=== PATIENT | female | born 1930 | race Caucasian/White ===

== ENCOUNTER → 2016-08-20 | Outpatient (CLI) | payer OTHER ==
[~2016-08-20] MED LIST: ACET-1311 PO; ALPHTAB4 PO; ATOR10TA82 PO; CEPH500C PO; CHOL200027 PO; CYAN100020 PO; FLUT0.15 NAE; HYDR200T5 PO; IBAN150T PO; LEVO1TAB34 PO; MAGN400T6 PO; METO-551 PO; MOMLX PO; MULT-412 PO; NF656 TOP; NUTR-1197 PO; NYSCR15 TOP; ONDA4TAB10 SL; ONDA4TAB46 PO; OXYC1TAB3 PO; PANC6000 PO; POLY335025 PO; POLY99.0 OPB; POTA-74 PO; PRED10TA PO; SIME80CH PO; TRAM-10 PO; VENL-273 PO; WOUN1PAD TD; ZNTT/150 PO; [UNRECOGNIZED DRUG - CODE]; [UNRECOGNIZED DRUG - CODE] PO; etodolac PO
== END | disposition home or self-care (01) ==
LOC: C.LABFOXAE 10:38
PROVIDERS: ATTEND Internal Medicine
DX: R19.7 Diarrhea, unspecified (principal)

== ENCOUNTER 2016-09-07 12:27 | Emergency (ER) | payer OTHER ==
[~2016-09-07] VITALS: Ht 160 cm; Wt 45.0 kg
[~2016-09-07 12:27] MED LIST changes: -ATOR10TA82 PO; +ATOR10TA88 PO; -CEPH500C PO; -FLUT0.15 NAE; -LEVO1TAB34 PO; -MOMLX PO; -NF656 TOP; -NUTR-1197 PO; -NYSCR15 TOP; -ONDA4TAB46 PO; -OXYC1TAB3 PO; -POLY99.0 OPB; -PRED10TA PO; -WOUN1PAD TD; -[UNRECOGNIZED DRUG - CODE]; -etodolac PO
[2016-09-07 12:32] VITALS: TEMP 36.8; Ht 160 cm; Wt 45.0 kg
--- NOTE | 2016-09-07 12:43 | EMERGENCY ROOM VISIT NOTE ---
History Report prepared by Koryibe: Meredith Ha Under the Supervision of: Dr. Mohamud Denny M.D. First contact with patient: 12:34 Chief Complaint: GI ASSESSMENT Stated Complaint: UNABLE TO VOID Nursing Triage Summary: Patient with colostomy, urostomy, presents with negative output in colostomy bag this AM. Patient reports abdominal pain yesterday. Upon arrival to ED, output noted in bag and patient reports relief of abdominal pressure. Slight distension noted. History of Present Illness The patient is an 86 year old female who presents to the Emergency Room with complaints of an inability to void. She was brought to the ED via EMS from [facility], where she resides. She has both a colostomy and urostomy bag and states earlier this morning, neither of them had any output from the night. She reports she experienced some abdominal pain yesterday, but it has resolved. Upon arrival to the ED, both her urostomy and colostomy bags provided output. The patient does not think she has ever experienced a bowel blockage before. She denies any other symptoms presently and states she feels better here in the ED. 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 A total of 10 systems reviewed and were otherwise negative. Past Medical & Surgical Medical Problems: (1) Carcinoma of colon (2) Closed fracture of sternum (3) Dehydration (4) Diarrhea (5) Essential hypertension (6) Gastroenteritis (7) Gastroesophageal reflux disease (8) History of Clostridium difficile (9) MRSA (methicillin resistant Staphylococcus aureus) (10) Pacemaker (11) Total colectomy Surgical Problems: (1) S/P colostomy (2) S/P ureterostomy Family History Heart disease Social History Smoking Status: Never Smoker Alcohol Use: none Drug Use: none Marital Status: Housing Status: assisted living Occupation Status: retired Current/Historical Medications Scheduled Acetaminophen (Tylenol), 650 MG PO TID [id number]-Mtcfzqiikzjdc (Beano), 2 TABS PO QID/UD Cholecalciferol (Vitamin D-3), 2,000 UNIT PO DAILY Cyanocobalamin (Vitamin B12), 1,000 MCG PO DAILY Hydroxychloroquine Sulfate (Plaquenil), 200 MG PO DAILY Ibandronate Sodium (Boniva), 150 MG PO MONTHLY Lactase (Lac-Dose), 3,000 UNIT PO TID Magnesium Oxide (Mag-Ox), 400 MG PO TID Metoprolol Tartrate (Lopressor), 50 MG PO Q12 Pancrelipase (Lipase-Protease- (Creon), 24,000 UNITS PO 5XD Polyethylene Glycol 3350 (Miralax), 8.5 GM PO DAILY Potassium Chloride (Potassium Chloride Er), 1 TAB PO TID Ranitidine (Zantac), 150 MG PO BID Simethicone (Gas-X), 80 MG PO TID Venlafaxine Hcl (Venlafaxine Hcl Er), 75 MG PO DAILY Scheduled PRN Tramadol (Ultram), 25 MG PO Q4H PRN for Pain Allergies Coded Allergies: Sulfamethoxazole w/Trimethoprim (Verified Allergy, Unknown, HIVES, 05/20/16 ) Lorazepam (Verified Adverse Reaction, Severe, DELIRIUM, 05/20/16) WORSENING of agitation and delirium. Morphine (Verified Adverse Reaction, Mild, CONFUSION, EXTREME AGITATION, 05/20/16) Haloperidol (Verified Adverse Reaction, Unknown, OVERSEDATION IN THE PAST , 05/20/16) Listed on [facility]. Physical Exam Vital Signs Date Time Temp Pulse Resp B/P Pulse Ox O2 Delivery O2 Flow Rate FiO2 09/07/16 14:29 74 16 132/88 99 09/07/16 12:32 36.8 74 16 131/60 94 Room Air Physical Exam GENERAL: Patient is well-appearing, smiling and in no acute distress. HEENT: No acute trauma, normocephalic atraumatic, mucous membranes moist, no nasal congestion, no scleral icterus. NECK: No stridor, no adenopathy, no meningismus, trachea is midline. LUNGS: No dyspnea. Clear to auscultation and equal bilaterally. No wheeze, no rhonchi. HEART: Regular rate and rhythm. No murmurs, rubs, gallops appreciated. ABDOMEN: Large amount of stool and gas in the ostomy bag. Abdomen is soft, nontender, bowel sounds positive, no masses appreciated, no peritonitis. BACK: No midline tenderness, no CVA tenderness EXTREMITIES: Normal motion all extremities, no cyanosis, no edema. NEUROLOGIC: Alert and oriented, no acute motor or sensory deficits, no focal weakness, cranial nerves grossly intact. SKIN: No rash, no jaundice, no diaphoresis. Medical Decision & Procedures ED Course 1236: The patient was evaluated in room A12. A complete history and physical exam was performed. 1350: I reevaluated the patient. She states she feels much better and would like to go home. I discussed the possibility that she has an early bowel blockage and she states she feels fine and will come back if she starts to get worse. After emptying her colostomy bag, it is now filled up again. I discussed her results and discharge instructions and she verbalized complete understanding and agreement. Medical Decision Differential: Appendicitis, Diverticulitis, PUD/Gastritis, Biliary Pathology, UTI, Pyelonephritis, Renal Colic, Bowel Obstruction, Aortic Pathology, Acute Coronary Syndrome, amongst other pathologies entertained. 86 yr old female arrives for evaluation of abdominal pain over last 12-24 hours. Notes it was constant with no bowel outs in to her ostomy overnight. En route on ambulance symptoms resolved and bag full of stool. She states she feels fine now. She declines any testing nor imaging. Abdomen is soft non- tender and bowel sounds are normal. Colostomy emptied twice and patient monitored for quite some time. She is requesting discharge and wants to go home. She is aware this may be start of some intraabdominal process and that if symptoms return to call 911 or RTED. Stable and in no distress throughout stay. I suspect this may have been stool blockage vs actual SBO that has resolved, regardless she is feeling much better and things have resolved thus seems reasonable to see how she does as an outpatient. I did make it clear that there may be something still going on though patient adamant not testing nor imaging at this time. Impression Primary Impression: Diffuse abdominal pain Scribe Attestation The scribe's documentation has been prepared under my direction and personally reviewed by me in its entirety. I confirm that the note above accurately reflects all work, treatment, procedures, and medical decision making performed by me. Departure Information Dispostion Home / Self-Care Referrals Hugo Martinez (PCP) Patient Instructions My [facility] Additional Instructions Return immediately or call 911 if worsening pain, fevers, vomiting, blood in urine or other concerns. Please follow up with your primary care provider.
[2016-09-07 14:29] VITALS: BP 132/88; PULSE 74; O2SAT 99
[2016-11-15] MEDS ORDERED: FLUT0.15 NAE (09:15)
[2016-11-15] MEDS ORDERED: [UNRECOGNIZED DRUG - CODE] (09:15)
[2016-11-15] MEDS ORDERED: MOMLX PO (09:15)
[2016-11-15] MEDS ORDERED: etodolac PO (09:15)
== END 2016-09-07 14:29 | disposition home or self-care (01) ==
LOC: EDBD 12:27 → C.EDA 12:29
DX: R10.9 Unspecified abdominal pain (principal); I10 Essential (primary) hypertension; K21.9 Gastro-esophageal reflux disease without esophagitis; Z95.0 Presence of cardiac pacemaker; Z90.49 Acquired absence of other specified parts of digestive tract

== ENCOUNTER → 2016-09-23 | Outpatient (CLI) | payer OTHER ==
[~2016-09-23] MED LIST changes: -ATOR10TA88 PO; +CEPH500C PO; +FLUT0.15 NAE; +LEVO1TAB34 PO; +MOMLX PO; -MULT-412 PO; +NF656 TOP; +NUTR-1197 PO; +NYSCR15 TOP; -ONDA4TAB10 SL; +ONDA4TAB46 PO; +OXYC1TAB3 PO; +POLY99.0 OPB; +PRED10TA PO; +WOUN1PAD TD; +[UNRECOGNIZED DRUG - CODE]; +etodolac PO
[2016-09-23 09:53] LABS: HEMATOCRIT 37.2 % (37-47); MEAN CELL VOLUME 92.3 fL (80-100); MEAN CORPUSCULAR HEMOGLOBIN 29.8 pg (25-34); MEAN CORPUSCULAR HGB CONC 32.3 g/dl (32-36); MEAN PLATELET VOLUME 9.6 fL (7.4-10.4); PLATELET COUNT 270 K/uL (130-400); RED BLOOD COUNT 4.03 M/uL (4.2-5.4); WHITE BLOOD COUNT 4.54 K/uL (4.8-10.8)
[2016-09-23 10:16] LABS: BLOOD UREA NITROGEN 29 mg/dl (7-18); BUN/CREATININE RATIO 24.4 (10-20); CALCIUM 9.3 mg/dl (8.5-10.1); CARBON DIOXIDE 21 mmol/L (21-32); CHLORIDE 110 mmol/L (98-107); CHOLESTEROL 116 mg/dl (0-200); GLUCOSE 92 mg/dl (70-99); SODIUM 142 mmol/L (136-145); TRIGLYCERIDES 120 mg/dl (0-150); VERY LOW DENSITY LIPOPROT CALC 24 mg/dl
[2016-09-23 10:21] LABS: CHOLESTEROL/HDL RATIO 2.2; FERRITIN 32.2 ng/ml (8.0-388.0); HDL CHOLESTEROL 53 mg/dl; LDL CHOLESTEROL CALCULATED 39 mg/dl; TOTAL IRON BINDING CAPACITY 333 mcg/dl (250-450)
== END ==
LOC: C.LABFOXAE 09:15
PROVIDERS: ATTEND Internal Medicine
DX: E87.6 Hypokalemia (principal); I82.449 Acute embolism and thrombosis of unspecified tibial vein

== ENCOUNTER → 2016-11-07 | Outpatient (CLI) | payer OTHER ==
[~2016-11-07] MED LIST changes: +[UNRECOGNIZED DRUG - CODE]; -[UNRECOGNIZED DRUG - CODE]
--- NOTE | 2016-11-07 11:52 | DIAGNOSTIC IMAGING REPORT ---
CT LUMBAR SPINE WITHOUT CT DOSE: 599.95 mGy.cm CLINICAL HISTORY: LOWER BACK PAIN, COMPRESSION AT L1 TECHNIQUE: Helical images were acquired in transverse plane. Reformatted sagittal and coronal images were reviewed. CONTRAST: No contrast was administered COMPARISON STUDY: Conventional radiographic study dated 08/28/2015, CT scan of the lumbar spine dated 05/18/2008, CT scan abdomen pelvis dated May 19, 2016 FINDINGS: The bones are osteopenic. There is an old severe L1 compression fracture with mild retropulsion. No acute fractures are visualized. There is a moderate levoscoliosis. L1-2 level: There is no evidence of significant disc bulge or focal herniation. There is no evidence of spinal or foraminal stenosis. L2-3 level: There is a mild circumferential disc bulge. There is mild spinal stenosis. There is no significant foraminal narrowing. L3-4 level: There is a mild circumferential disc bulge present. There is mild to moderate spinal stenosis. There is no significant foraminal narrowing. L4-5 level: There is a mild circumferential disc bulge. There is minor spinal canal narrowing. There is no significant foraminal stenosis. L5-S1 level: There is a grade 1 spondylolisthesis of L5 on S1. No focal herniations are visualized. There is no significant spinal stenosis. There is moderate left-sided foraminal narrowing. IMPRESSION: 1. Old severe L1 compression fracture with mild retropulsion 2. No acute fractures or traumatic subluxations are visualized 3. Osteopenia 4. Multilevel spondylitic changes with multilevel disc bulges. There is mild to moderate spinal stenosis the L3-4 level. 5. Left-sided foraminal narrowing at the L5-S1 level. Grade 1 spondylolisthesis of L5 on S1. Electronically signed by: Abrahan Woods M.D. 11/07/2016 11:51 AM Dictated Date/Time: 11/07/2016 11:46 AM
--- NOTE | 2016-11-12 05:58 | CODING QUERY NO DIAGNOSIS ---
TREATMENT RENDERED WITHOUT A DIAGNOSIS To promote full compliance with coding requirements relating to patient care, physician participation is requested in all cases of certified medical records coder uncertainty. Please assist us with providing a diagnosis/symptom for the test(s) below: A diagnosis/symptom was not documented on your Order. A valid diagnosis/symptom is required to bill all insurances. Please remember that we are unable to code a diagnosis of rule out, probable, possible, questionable, or suspected. Tests that require a diagnosis: * CT LUMBAR SPINE W/O IV CONTRAST DIAGNOSIS: Provider Signature: Date: Thank you Shannan [employer] Once completed, please kindly fax back to [phone] For questions please call [phone]
== END ==
LOC: C.CTS 10:58
PROVIDERS: ATTEND Internal Medicine
DX: M85.88 Other specified disorders of bone density and structure, other site (principal); M51.26 Other intervertebral disc displacement, lumbar region; M99.73 Connective tissue and disc stenosis of intervertebral foramina of lumbar region; M43.17 Spondylolisthesis, lumbosacral region

== ENCOUNTER → 2016-11-08 | Outpatient (CLI) | payer OTHER ==
--- NOTE | 2016-11-12 12:28 | CODING QUERY NO DIAGNOSIS ---
TREATMENT RENDERED WITHOUT A DIAGNOSIS To promote full compliance with coding requirements relating to patient care, physician participation is requested in all cases of certified professional coder uncertainty. Please assist us with providing a diagnosis/symptom for the test(s) below: A diagnosis/symptom was not documented on your Order. A valid diagnosis/symptom is required to bill all insurances. Please remember that we are unable to code a diagnosis of rule out, probable, possible, questionable, or suspected. Tests that require a diagnosis: DOS: 11/08/16 * ESR DIAGNOSIS: Provider Signature: Date: Thank you Cristina [facility] Information Management Once completed, please kindly fax back to [phone] For questions please call [phone]
== END ==
LOC: C.LABFOXAE 07:59
PROVIDERS: ATTEND Internal Medicine
DX: M54.5 Low back pain (principal)

== ENCOUNTER 2016-11-19 11:36 | Emergency (ER) | payer OTHER ==
[~2016-11-19] VITALS: Ht 157.5 cm; Wt 49.5 kg
[~2016-11-19 11:36] MED LIST changes: -CEPH500C PO; -LEVO1TAB34 PO; -NF656 TOP; -NUTR-1197 PO; -NYSCR15 TOP; -ONDA4TAB46 PO; -OXYC1TAB3 PO; -POLY99.0 OPB; -PRED10TA PO; -SIME80CH PO; -WOUN1PAD TD
[2016-11-19 11:52] VITALS: TEMP 36.5; Ht 157.5 cm; Wt 49.5 kg
[2016-11-19] MEDS ORDERED: SIME80CH PO (12:14)
[2016-11-19] MEDS ORDERED: ONDA4TAB46 PO (12:14)
[2016-11-19] MEDS ORDERED: POLY99.0 OPB (12:14)
[2016-11-19] MEDS ORDERED: NF656 TOP (12:14)
[2016-11-19 13:03] LABS: BASO % 0.5 %; BASO ABS # 0.03 K/uL (0-0.2); COMPLETE YES; EOS % 1.6 %; HEMATOCRIT 37.3 % (37-47); IG% 0.2 %; LYMPH % 9.3 %; LYMPH ABS # 0.57 K/uL (1.2-3.4); MEAN CELL VOLUME 93.3 fL (80-100); MEAN CORPUSCULAR HEMOGLOBIN 30.8 pg (25-34); MEAN PLATELET VOLUME 9.2 fL (7.4-10.4); MONO % 13.4 %; PLATELET COUNT 344 K/uL (130-400); WHITE BLOOD COUNT 6.11 K/uL (4.8-10.8)
[2016-11-19 13:20] LABS: BUN/CREATININE RATIO 21.2 (10-20); CALCIUM 9.2 mg/dl (8.5-10.1); CREATININE 0.93 mg/dl (0.60-1.20); POTASSIUM 4.2 mmol/L (3.5-5.1)
--- NOTE | 2016-11-19 13:41 | DIAGNOSTIC IMAGING REPORT ---
HEAD CT NONCONTRAST CT DOSE: 729.78 mGycm HISTORY: Altered mental status. TECHNIQUE: Multiaxial CT images of the head were performed without the use of intravenous contrast. Automated exposure control was utilized for this study. Comparison: Head CT 05/20/2016. Findings: The paranasal sinuses and mastoid air cells are clear. The calvarium and skull base are intact. There is no mass, hematoma, midline shift, acute infarct. White matter hypodensity is nonspecific but suggestive of microvascular ischemic change. The ventricles and sulci demonstrate mild age-related involutional changes. Impression: No significant change compared to the prior study. No acute intracranial abnormality. Electronically signed by: Shayan Wong M.D. 11/19/2016 1:40 PM Dictated Date/Time: 11/19/2016 1:37 PM
--- NOTE | 2016-11-19 13:56 | DIAGNOSTIC IMAGING REPORT ---
CT LUMBAR SPINE WITHOUT CT DOSE: 649.10 mGycm CLINICAL HISTORY: Low back pain. L1 compression fracture. TECHNIQUE: Helical images were acquired in transverse plane. Reformatted sagittal and coronal images were reviewed. CONTRAST: No contrast was administered COMPARISON STUDY: 11/07/2016 FINDINGS: There is an old severe L1 compression fracture with mild retropulsion. This remains unchanged the preceding study. No acute fractures are visualized. There is a grade 1 spondylolisthesis of L5 on S1, unchanged from the preceding study. There are multilevel degenerative changes present. There is mild to moderate spinal stenosis at the L3-4 level, unchanged the prior study. IMPRESSION: 1. No change from the prior November 04, 2012 study 2. Old severe L1 compression fracture with mild retropulsion 3. No acute fractures or traumatic subluxations identified 4. Osteopenia 5. Grade 1 spinal listhesis of L5 and S1 6. Mild to moderate spinal stenosis the L3-4 level. Electronically signed by: Abrahan Woods M.D. 11/19/2016 1:55 PM Dictated Date/Time: 11/19/2016 1:46 PM
[2016-11-19 14:53] LABS: URINE APPEARANCE CLOUDY (CLEAR); URINE BILIRUBIN NEG (NEG); URINE COLOR YELLOW; URINE NITRITE POS (NEG); URINE SPECIFIC GRAVITY 1.015 (1.000-1.030); UROBILINOGEN NEG (NEG)
[2016-11-19 15:03] LABS: MANUAL MICROSCOPIC REQUIRED? YES; REVIEW REQ? NO
[2016-11-19 15:24] LABS: URINE BACTERIA 3+ (NEG); URINE MUCUS PRESENT (NONE PRSENT); URINE WBC >30 /hpf (0-5)
[2016-11-19 15:25] LABS: URINE RBC 0-4 /hpf (0-4); ZZURINE CULT IF INDIC CATH YES
[2016-11-19] MEDS ORDERED: CEPHALEXIN MONOHYDRATE 250 MG CAP PO ONE (15:30)
[2016-11-19] MEDS ORDERED: OXYC1TAB3 PO (15:54)
[2016-11-19] MEDS ORDERED: CEPH500C PO (15:54)
[2016-11-19] MEDS ORDERED: TRAMADOL HCL 50 MG TAB PO STA (17:03)
[2016-11-19 17:05] VITALS: BP 168/112; PULSE 75; O2SAT 98
--- NOTE | 2016-11-19 18:22 | EMERGENCY ROOM VISIT NOTE ---
History Report prepared by Cristina: Jaden Silverio Under the Supervision of: Mary PritchettO. First contact with patient: 12:00 Chief Complaint: BACK PAIN Stated Complaint: Back pain, Compression Fracture History of Present Illness The patient is an 86 year old female who presents to the Emergency Room from [facility] with complaints of intermittent back pain that started after a fall a few weeks ago. Per the patient, she is not having any pain right now, except for a slight head pain. She currently cannot tell me the year. The patient denies any shortness of breath, diarrhea, chest pain, hip pain, or urinary symptoms. Per the nursing notes, the patient had a fall with a compression fracture on November 06. Per [facility] staff, the pain is not controlled. She has not been ambulating as much and has been more confused lately, according to the staff. History limited secondary to patient's dementia. Source of History: patient, nursing staff, other ([facility] staff) History Limited By: dementia Onset: A few weeks ago Position: back Timing: intermittent Associated Symptoms: + headache, No SOB, No chest pain, No diarrhea, No urinary symptoms Note: Associated symptoms: More confused lately. Review of Systems See HPI for pertinent positives & negatives. A total of 10 systems reviewed and were otherwise negative. Past Medical & Surgical Medical Problems: (1) Carcinoma of colon (2) Closed fracture of sternum (3) Dehydration (4) Diarrhea (5) Essential hypertension (6) Gastroenteritis (7) Gastroesophageal reflux disease (8) History of Clostridium difficile (9) MRSA (methicillin resistant Staphylococcus aureus) (10) Pacemaker (11) Total colectomy Surgical Problems: (1) S/P colostomy (2) S/P ureterostomy Family History Heart disease Social History Smoking Status: Never Smoker Alcohol Use: none Drug Use: none Marital Status: Housing Status: assisted living Occupation Status: retired Current/Historical Medications Scheduled Acetaminophen (Tylenol), 650 MG PO TID Bfiqe-O-Pgfbayirlhbla (Beano), 2 TABS PO QID/UD Calcitonin [place] (Miacalcin), 1 SPRAY NA DAILY Cephalexin Monohydrate (Keflex), 500 MG PO QID Cholecalciferol (Vitamin D-3), 2,000 UNIT PO DAILY Cyanocobalamin (Vitamin B12), 1,000 MCG PO DAILY Fluticasone Propionate (Nasal) (Flonase Allergy Relief), 2 SPRAYS ARI QAM Hydroxychloroquine Sulfate (Plaquenil), 200 MG PO DAILY Ibandronate Sodium (Boniva), 150 MG PO MONTHLY Lactase (Lac-Dose), 3,000 UNIT PO TID Lidocaine (Lidoderm Patch 5%), 2 PATCH TOP DAILY Magnesium Hydroxide (Milk of Magnesia), 30 ML PO UD Magnesium Oxide (Mag-Ox), 400 MG PO TID Metoprolol Tartrate (Lopressor), 50 MG PO Q12 Ondansetron Hcl (Zofran), 4 MG PO Q4H Pancrelipase (Lipase-Protease- (Creon), 24,000 UNITS PO 5XD Polyethylene Glycol 3350 (Miralax), 8.5 GM PO DAILY Potassium Chloride (Potassium Chloride Er), 1 TAB PO TID Ranitidine (Zantac), 150 MG PO BID Simethicone (Ra Gas Relief), 1 TAB PO TID Venlafaxine Hcl (Venlafaxine Hcl Er), 75 MG PO DAILY [etodolac], 200 MG PO BID Scheduled PRN Oxycodone Immediate Rel Tab (Roxicodone Ir), 5 MG PO Q6H PRN for Pain Polyvinyl Alcohol (Artificial Tears), 1 DROP OPB QID PRN for PRN Tramadol (Ultram), 50 MG PO Q4H PRN for Pain Allergies Coded Allergies: Sulfamethoxazole w/Trimethoprim (Verified Allergy, Unknown, HIVES, 11/19/16) Lorazepam (Verified Adverse Reaction, Severe, DELIRIUM, 11/19/16) WORSENING of agitation and delirium. Morphine (Verified Adverse Reaction, Mild, CONFUSION, EXTREME AGITATION, ) Haloperidol (Verified Adverse Reaction, Unknown, OVERSEDATION IN THE PAST , 11/19/16) Listed on [facility]. Uncoded Allergies: BENGAY (Adverse Reaction, Intermediate, RASH, 11/19/16) Physical Exam Vital Signs Date Time Temp Pulse Resp B/P Pulse Ox O2 Delivery O2 Flow Rate FiO2 11/19/16 17:05 75 18 168/112 98 11/19/16 15:54 74 18 186/103 98 Room Air 11/19/16 13:41 70 18 159/86 96 Room Air 11/19/16 11:52 36.5 70 20 140/78 96 Room Air Physical Exam GENERAL: laying in bed, well-kept, no acute distress, nontoxic EYE EXAM: normal conjunctiva OROPHARYNX: no exudate, no erythema, lips, buccal mucosa, and tongue normal and mucous membranes are moist NECK: supple, no nuchal rigidity, no adenopathy, non-tender LUNGS: Clear to auscultation. Normal chest wall mechanics HEART: no murmurs, S1 normal and S2 normal ABDOMEN: abdomen soft, non-tender, normo-active bowel sounds, no masses, no rebound or guarding. BACK: Lidoderm patch in lower lumbar with minimal tenderness to palpation SKIN: no rashes and no bruising UPPER EXTREMITIES: upper extremities are grossly normal. LOWER EXTREMITIES: flexion extension with hip, knee, ankle, and EHL 5/5, gross sensation intact NEURO EXAM: Alert and oriented to person and place but not year, cranial nerves II-XII grossly intact, normal speech, no gross weakness of arms, no gross weakness of legs. No drift. Finger to nose intact. Gross sensation intact. Medical Decision & Procedures ER Provider Diagnostic Interpretation: CT:Per my review, radiologist interpretation. HEAD CT NONCONTRAST CT DOSE: 729.78 mGycm HISTORY: Altered mental status. TECHNIQUE: Multiaxial CT images of the head were performed without the use of intravenous contrast. Automated exposure control was utilized for this study. Comparison: Head CT 05/20/2016. Findings: The paranasal sinuses and mastoid air cells are clear. The calvarium and skull base are intact. There is no mass, hematoma, midline shift, acute infarct. White matter hypodensity is nonspecific but suggestive of microvascular ischemic change. The ventricles and sulci demonstrate mild age-related involutional changes. Impression: No significant change compared to the prior study. No acute intracranial abnormality. Electronically signed by: Shayan Wong M.D. 11/19/2016 1:40 PM Dictated Date/Time: 11/19/2016 1:[address] LUMBAR SPINE WITHOUT CT DOSE: 649.10 mGycm CLINICAL HISTORY: Low back pain. L1 compression fracture. TECHNIQUE: Helical images were acquired in transverse plane. Reformatted sagittal and coronal images were reviewed. CONTRAST: No contrast was administered COMPARISON STUDY: 11/07/2016 FINDINGS: There is an old severe L1 compression fracture with mild retropulsion. This remains unchanged the preceding study. No acute fractures are visualized. There is a grade 1 spondylolisthesis of L5 on S1, unchanged from the preceding study. There are multilevel degenerative changes present. There is mild to moderate spinal stenosis at the L3-4 level, unchanged the prior study. IMPRESSION: 1. No change from the prior November 04, 2012 study 2. Old severe L1 compression fracture with mild retropulsion 3. No acute fractures or traumatic subluxations identified 4. Osteopenia 5. Grade 1 spinal listhesis of L5 and S1 6. Mild to moderate spinal stenosis the L3-4 level. Electronically signed by: Abrahan Woods M.D. 11/19/2016 1:55 PM Dictated Date/Time: 11/19/2016 1:46 PM Laboratory Results 11/19/16 12:45 Red Blood Count 4.00, Mean Corpuscular Volume 93.3, Mean Corpuscular Hemoglobin 30.8, Mean Corpuscular Hemoglobin Concent 33.0, Mean Platelet Volume 9.2, Neutrophils (%) (Auto) 75.0, Lymphocytes (%) (Auto) 9.3, Monocytes (%) (Auto) 13.4, Eosinophils (%) (Auto) 1.6, Basophils (%) (Auto) 0.5, Neutrophils # (Auto ) 4.58, Lymphocytes # (Auto) 0.57, Monocytes # (Auto) 0.82, Eosinophils # (Auto ) 0.10, Basophils # (Auto) 0.03 11/19/16 12:45 Test 11/19/16 12:45 11/19/16 14:00 White Blood Count 6.11 K/uL (4.8-10.8) Red Blood Count 4.00 M/uL (4.2-5.4) Hemoglobin 12.3 g/dL (12.0-16.0) Hematocrit 37.3 % (37-47) Mean Corpuscular Volume 93.3 fL (80-100) Mean Corpuscular Hemoglobin 30.8 pg (25-34) Mean Corpuscular Hemoglobin Concent 33.0 g/dl (32-36) Platelet Count 344 K/uL (130-400) Mean Platelet Volume 9.2 fL (7.4-10.4) Neutrophils (%) (Auto) 75.0 % Lymphocytes (%) (Auto) 9.3 % Monocytes (%) (Auto) 13.4 % Eosinophils (%) (Auto) 1.6 % Basophils (%) (Auto) 0.5 % Neutrophils # (Auto) 4.58 K/uL (1.4-6.5) Lymphocytes # (Auto) 0.57 K/uL (1.2-3.4) Monocytes # (Auto) 0.82 K/uL (0.11-0.59) Eosinophils # (Auto) 0.10 K/uL (0-0.5) Basophils # (Auto) 0.03 K/uL (0-0.2) RDW Standard Deviation 43.1 fL (36.4-46.3) RDW Coefficient of Variation 12.6 % (11.5-14.5) Immature Granulocyte % (Auto) 0.2 % Immature Granulocyte # (Auto) 0.01 K/uL (0.00-0.02) Anion Gap 9.0 mmol/L (3-11) Est Creatinine Clear Calc Drug Dose 33.9 ml/min Estimated GFR () 64.5 Estimated GFR (Non- 55.6 BUN/Creatinine Ratio 21.2 (10-20) Calcium Level 9.2 mg/dl (8.5-10.1) Total Bilirubin 0.7 mg/dl (0.2-1) Direct Bilirubin 0.2 mg/dl (0-0.2) Aspartate Amino Transf (AST/SGOT) 19 U/L (15-37) Alanine Aminotransferase (ALT/SGPT) 19 U/L (12-78) Alkaline Phosphatase 124 U/L (45-117) Total Protein 6.6 gm/dl (6.4-8.2) Albumin 3.1 gm/dl (3.4-5.0) Lipase 158 U/L (73-393) Urine Color YELLOW Urine Appearance CLOUDY (CLEAR) Urine pH 7.0 (4.5-7.5) Urine Specific [place] 1.015 (1.000-1.030) Urine Protein 1+ (NEG) Urine Glucose (UA) NEG (NEG) Urine Ketones NEG (NEG) Urine Occult Blood NEG (NEG) Urine Nitrite POS (NEG) Urine Bilirubin NEG (NEG) Urine Urobilinogen NEG (NEG) Urine Leukocyte Esterase MODERATE (NEG) Urine RBC 0-4 /hpf (0-4) Urine WBC >30 /hpf (0-5) Urine Epithelial Cells 5-10 /lpf (0-5) Urine Bacteria 3+ (NEG) Urine Hyaline Casts 1-5 /lpf (0-5) Urine Granular Casts 1-5 /lpf (0) Urine Mucus PRESENT (NONE PRSENT) Laboratory results per my review. Medications Administered Medications (Trade) Dose Ordered Sig/Gonzalo Route Start Time Stop Time Status Last Admin Dose Admin Cephalexin Monohydrate (Keflex Cap) 500 mg NOW ONCE PO 11/19/16 15:30 11/19/16 15:31 DC 11/19/16 15:54 500 MG Tramadol HCl (Ultram Tab) 50 mg NOW STAT PO 11/19/16 17:03 11/19/16 17:04 DC 11/19/16 17:03 50 MG ED Course ED COURSE: Vital signs were reviewed and showed normal vitals. The patients medical record was reviewed The above diagnostic studies were performed and reviewed. ED treatments and interventions as stated above. 1204: The patient was evaluated in room C1B. A complete history and physical examination was performed. 1218: I discussed the patient with staff at [facility] - the patient has been more confused over the past month and a half. She was sent here for pain control of the patient's lower back because they were unable to have the patient see pain management. 1234: I discussed the patient with Dr. Neal - knuckler - he does not think that the patient needs to be transferred. He thinks the patient's pain is controlled with Ultram. The patient's confusion is not any worse. 1344: I discussed the patient with Dr. Cotton of pain management - he suggests that if the patient needs, to increase her pain medications to oxycodone or hydrocodone. He will try to move the patient's appointment up. 1512: Upon reevaluation, the patient would like to go home and has no pain. I discussed my findings with the patient and she understands and agrees with the treatment plan. Based on the patients age, coexisting illnesses, exam and lab findings the decision to treat as an outpatient was made. The patient remained stable while under my care. The patient appeared well at the time of discharge. 1530: Ordered Keflex Cap 500 mg PO. 1540: I talked with the patient's son. I attempted to call the patient's daughter at her home and work number. 1547: I updated the charge nurse at [facility] regarding the patient's return. Medical Decision Differential diagnoses includes but is not limited to lumbar radiculopathy, muscle strain, facture, cauda equina, mass, and disc herniation. Patient is an 86 year old female [facility] per the request of her daughter for uncontrolled back pain. Patient has an old compression fracture and saw pain management and is scheduled on to have an injection. I spoke with the daughter and she was extremely upset and wanted her admitted for pain management to evaluate her. Following this I discussed with the nursing staff and they note that she has pain with movement. I discussed it with the attending physician at the [facility] and he notes that she is at her baseline and thinks that the confusion comes and goes with the Ultram. He also thinks that her pain is controlled with exception of when she moves. He is not sure why she got sent over to the hospital with the exception of because the daughter requested. I discussed the case with Dr. Emerson from pain management and he agreed with current treatment plan. CT of her lumbar spine shows no acute pathology. CBC along with BMP, bilirubin, LFTs and lipase was unremarkable. UA did have nitrates, leukocytes and white cells to suggest a UTI. She was given a dose of Keflex. Just prior to leaving she started to have some pain and she is given Ultram. Prior to discharge I did discuss case with her son who was in agreement with the plan. I tended to contact the daughter but was unsuccessful. From what she stated earlier she will be very unhappy and she is being discharged but I do not feel that she meets inpatient treatment at this time and that her pain is controlled as an outpatient. Discussed with Pt concerning signs and symptoms to watch out for. Pt was instructed to follow up with their PCP and discussed with the patient their option to return to the ED at anytime for persistent or worsening symptoms. The appropriate anticipatory guidance and out-patient management, including indications for return to the emergency department, were explained at length to the patient and understood. Consults Time Called: 1211 Consulting Physician: Staff at [facility] Returned Call: 1218 I discussed the patient with staff at [facility] - the patient has been more confused over the past month and a half. She was sent here for pain control of the patient's lower back because they were unable to have the patient see pain management. Additional Consults: Time Called: 1230 Consulted Physician: Dr. Neal - knuckler Returned Call: 1234 Additional Comments: I discussed the patient with Dr. Neal - knuckler - he does not think that the patient needs to be transferred. He thinks the patient's pain is controlled with Ultram. The patient's confusion is not any worse. Time Called: 1340 Consulted Physician: Dr. Cotton of pain management Returned Call: 1344 Additional Comments: I discussed the patient with Dr. Cotton of pain management - he suggests that if the patient needs, to increase her pain medications to oxycodone or hydrocodone. He will try to move the patient's appointment up. Impression Primary Impression: Acute back pain Additional Impression: UTI (urinary tract infection) Scribe Attestation The scribe's documentation has been prepared under my direction and personally reviewed by me in its entirety. I confirm that the note above accurately reflects all work, treatment, procedures, and medical decision making performed by me. Departure Information Dispostion Home / Self-Care Prescriptions Oxycodone Immediate Rel Tab (ROXICODONE IR) 5 Mg Tab 5 MG PO Q6H Y for Pain, #10 TAB Prov: Higinio Ojeda, DO 11/19/16 Cephalexin Monohydrate (Keflex) 500 Mg Cap 500 MG PO QID, #28 CAP Prov: Higinio Ojeda, DO 11/19/16 Referrals Hugo Martinez (PCP) Forms HOME CARE DOCUMENTATION FORM, IMPORTANT VISIT INFORMATION Patient Instructions Back Pain - [facility], ED UTI Cystitis Female, My [facility] Additional Instructions Please follow up with your primary care doctor with in the next 24 hours. Any worsening of your symptoms, please return to the ED immediately. This includes weakness or numbness in arms or legs, fevers greater than 100.4, persistent nausea vomiting, worsening pain, or any other concerning signs or symptoms from your standpoint. You were given medications during this visit that will inhibit your ability to drive, operate machinery and work. Please do NOT drive, operate machinery or work for the next 12hrs. You were also given a prescription for a narcotic/Oxy IR. While taking this medication you should also not drive, operate machinery and or work. You should also not take OxyIR in combination with Ultram/ tramadol. I discussed your findings with pain management and they will try to get you an earlier appointment. I also discussed her presentation with your attending physician at your facility. Problem Qualifiers Primary Impression: Acute back pain Back pain location: back pain in unspecified location Back pain laterality: unspecified Qualified Codes: M54.9 - Dorsalgia, unspecified Additional Impression: UTI (urinary tract infection) Urinary tract infection type: acute cystitis Hematuria presence: with hematuria Qualified Codes: N30.01 - Acute cystitis with hematuria
== END 2016-11-19 17:05 | disposition home or self-care (01) ==
LOC: EDBD 11:36 → C.EDC 11:39
DX: M54.5 Low back pain (principal); N39.0 Urinary tract infection, site not specified; F03.90 Unspecified dementia, unspecified severity, without behavioral disturbance, psychotic disturbance, mood disturbance, and anxiety; Z85.038 Personal history of other malignant neoplasm of large intestine; I10 Essential (primary) hypertension; K21.9 Gastro-esophageal reflux disease without esophagitis; Z95.0 Presence of cardiac pacemaker; Z90.49 Acquired absence of other specified parts of digestive tract; Z79.899 Other long term (current) drug therapy

== ENCOUNTER → 2016-11-28 | Outpatient (CLI) | payer OTHER ==
[~2016-11-28] MED LIST changes: +CEPH500C PO; +LEVO1TAB34 PO; +NF656 TOP; +NUTR-1197 PO; +NYSCR15 TOP; +ONDA4TAB46 PO; +OXYC1TAB3 PO; +POLY99.0 OPB; +PRED10TA PO; +SIME80CH PO; +WOUN1PAD TD
[2016-11-28 08:56] LABS: URINE APPEARANCE CLEAR (CLEAR); URINE BILIRUBIN NEG (NEG); URINE COLOR YELLOW; URINE NITRITE NEG (NEG); URINE SPECIFIC GRAVITY 1.009 (1.000-1.030); UROBILINOGEN NEG (NEG)
[2016-11-28 09:12] LABS: MANUAL MICROSCOPIC REQUIRED? NO; REVIEW REQ? NO
--- NOTE | 2016-12-02 13:06 | CODING QUERY MEDICAL NECESSITY ---
CQSUPPORTING DIAGNOSIS NEEDED A supporting diagnosis is required for the test/procedure performed on this patient in order for us to be reimbursed by the patient's insurance. Please provide a supporting diagnosis for the following test/procedure listed below next to the test name along with your signature. *If there is no additional diagnosis for this patient that would support the following test/procedure please document that below next to the test/procedure. Test(s)/Procedure(s) that require a supporting diagnosis: DOS 11/29/15 URINE CULTURE Provider Signature: Date: Thank you Kaylan Peters [employer] Once completed, please kindly fax back to [phone] For questions please call [phone]
== END ==
LOC: C.LABFOXAE 07:49
PROVIDERS: ATTEND Anesthesiology
DX: Z01.812 Encounter for preprocedural laboratory examination (principal)

== ENCOUNTER → 2016-12-02 | Outpatient (CLI) | payer OTHER ==
[2016-12-02 09:26] LABS: BASO % 0.2 %; BASO ABS # 0.02 K/uL (0-0.2); COMPLETE YES; EOS % 0.4 %; HEMATOCRIT 40.8 % (37-47); IG% 0.2 %; LYMPH ABS # 0.49 K/uL (1.2-3.4); MEAN CELL VOLUME 92.7 fL (80-100); MEAN CORPUSCULAR HEMOGLOBIN 31.1 pg (25-34); MEAN CORPUSCULAR HGB CONC 33.6 g/dl (32-36); MEAN PLATELET VOLUME 9.5 fL (7.4-10.4); MONO % 9.2 %; PLATELET COUNT 368 K/uL (130-400); WHITE BLOOD COUNT 12.13 K/uL (4.8-10.8)
== END | disposition home or self-care (01) ==
LOC: C.LABFOXAE 08:48
PROVIDERS: ATTEND Anesthesiology
DX: Z01.812 Encounter for preprocedural laboratory examination (principal)

== ENCOUNTER → 2016-12-03 | Outpatient (CLI) | payer OTHER ==
[2016-12-03 09:39] LABS: HEMATOCRIT 37.4 % (37-47); MEAN CELL VOLUME 94.4 fL (80-100); MEAN CORPUSCULAR HEMOGLOBIN 31.1 pg (25-34); MEAN CORPUSCULAR HGB CONC 32.9 g/dl (32-36); MEAN PLATELET VOLUME 9.4 fL (7.4-10.4); PLATELET COUNT 292 K/uL (130-400); RED BLOOD COUNT 3.96 M/uL (4.2-5.4); WHITE BLOOD COUNT 6.88 K/uL (4.8-10.8)
[2016-12-03 10:29] LABS: BLOOD UREA NITROGEN 28 mg/dl (7-18); BUN/CREATININE RATIO 28.5 (10-20); CALCIUM 9.7 mg/dl (8.5-10.1); CARBON DIOXIDE 26 mmol/L (21-32); CHLORIDE 104 mmol/L (98-107); CREATININE 0.99 mg/dl (0.60-1.20); GLUCOSE 85 mg/dl (70-99); POTASSIUM 4.2 mmol/L (3.5-5.1); SODIUM 137 mmol/L (136-145)
== END | disposition home or self-care (01) ==
LOC: C.LABFOXAE 09:13
PROVIDERS: ATTEND Internal Medicine
DX: R41.82 Altered mental status, unspecified (principal)

== ENCOUNTER → 2016-12-04 | Outpatient (CLI) | payer OTHER ==
[2016-12-04 08:06] LABS: HEMATOCRIT 35.2 % (37-47); MEAN CELL VOLUME 94.9 fL (80-100); MEAN CORPUSCULAR HEMOGLOBIN 30.7 pg (25-34); MEAN CORPUSCULAR HGB CONC 32.4 g/dl (32-36); MEAN PLATELET VOLUME 9.2 fL (7.4-10.4); PLATELET COUNT 312 K/uL (130-400); RED BLOOD COUNT 3.71 M/uL (4.2-5.4); WHITE BLOOD COUNT 8.54 K/uL (4.8-10.8)
--- NOTE | 2016-12-05 09:47 | CODING QUERY NO DIAGNOSIS ---
TREATMENT RENDERED WITHOUT A DIAGNOSIS To promote full compliance with coding requirements relating to patient care, physician participation is requested in all cases of medical record coder uncertainty. Please assist us with providing a diagnosis/symptom for the test(s) below: A diagnosis/symptom was not documented on your Order. A valid diagnosis/symptom is required to bill all insurances. Please remember that we are unable to code a diagnosis of rule out, probable, possible, questionable, or suspected. Tests that require a diagnosis: DOS 12/04 * CBC DIAGNOSIS: Provider Signature: Date: Thank you Gay Vasquez [employer] Information Management Once completed, please kindly fax back to [phone] For questions please call [phone]
== END | disposition home or self-care (01) ==
LOC: C.LABFOXAE 07:45
PROVIDERS: ATTEND Internal Medicine
DX: R41.0 Disorientation, unspecified (principal)

== ENCOUNTER 2016-12-08 22:34 | Inpatient (IN) | payer OTHER ==
[~2016-12-08] VITALS: Ht 157.5 cm; Wt 39.0 kg
[~2016-12-08 22:34] MED LIST changes: -LEVO1TAB34 PO; -NUTR-1197 PO; -NYSCR15 TOP; -PRED10TA PO; -WOUN1PAD TD
[2016-12-08] MEDS ORDERED: SODIUM CHLORIDE 0.9% 1000ML 1,000 ML IV STA (22:51)
[2016-12-08] MEDS: HYDROmorphone INJ 0.5 MG/0.5 ML SYR IV STA ×2 (22:51→23:09)
[2016-12-08] MEDS ORDERED: PRED10TA PO (23:17)
[2016-12-08 23:23] LABS: ALT/SGPT 36 U/L (12-78); AST/SGOT 22 U/L (15-37); BLOOD UREA NITROGEN 32 mg/dl (7-18); BUN/CREATININE RATIO 22.6 (10-20); CALCIUM 10.1 mg/dl (8.5-10.1); CARBON DIOXIDE 25 mmol/L (21-32); CHLORIDE 99 mmol/L (98-107); GLUCOSE 169 mg/dl (70-99); POTASSIUM 4.9 mmol/L (3.5-5.1); SODIUM 137 mmol/L (136-145)
[2016-12-08 23:28] LABS: ALKALINE PHOSPHATASE 113 U/L (45-117)
[2016-12-08 23:43] LABS: HEMATOCRIT 45.3 % (37-47); MEAN CELL VOLUME 94.4 fL (80-100); MEAN CORPUSCULAR HEMOGLOBIN 32.1 pg (25-34); MEAN PLATELET VOLUME 9.2 fL (7.4-10.4); PLATELET COUNT 491 K/uL (130-400); WHITE BLOOD COUNT 30.67 K/uL (4.8-10.8)
[2016-12-08] MEDS ORDERED: FENTANYL CITRATE INJ 50 MCG/1 ML 2 ML VIAL IV STA (23:51)
[2016-12-08] MEDS ORDERED: PIPERACILLIN/TAZOBACTAM 3.375 GM/100ML D5W IV STA (23:53)
[2016-12-09] VITALS (7 sets, daily range): BP systolic 115–160; BP diastolic 67–91; PULSE 67–106; TEMP 36.4–37; O2SAT 94–98; Ht 157.5 cm; Wt 39.0 kg
[2016-12-09] MEDS ORDERED: SODIUM CHLORIDE 0.9% 500ML 500 ML IV STA (00:22)
[2016-12-09 00:23] LABS: BASO % 0.1 %; BASO ABS # 0.02 K/uL (0-0.2); COMPLETE YES; IG% 0.4 %; LYMPH % 3.8 %; LYMPH ABS # 1.17 K/uL (1.2-3.4); MONO % 9.2 %; NEUT % 86.5 %; VACUOLIZATION OCCASIONAL
[2016-12-09 00:24] LABS: URINE APPEARANCE CLOUDY (CLEAR); URINE BILIRUBIN NEG (NEG); URINE COLOR ORANGE; URINE NITRITE NEG (NEG); URINE PH 7.5 (4.5-7.5); URINE SPECIFIC GRAVITY 1.017 (1.000-1.030); UROBILINOGEN NEG (NEG)
[2016-12-09 00:38] LABS: MANUAL MICROSCOPIC REQUIRED? YES; REVIEW REQ? NO; SULFASALICYLIC ACID POS (NEG)
--- NOTE | 2016-12-09 00:56 | History and Physical ---
History & Physical Date & Time of Service: Dec 09, 2016 at 00:46 Chief Complaint: Vomiting/Chest Pain Primary Care Physician: Jere Neal M.D. History of Present Illness Source: patient, family he patient is an 86 year old female who presents to the Emergency Room with complaints of nausea and vomiting that began at 1630, six hours prior to arrival. The patient lives in [facility] and called for emergency medical services due to nausea while taking a walk at 1630 today. Per EMS the patient did vomit shortly after onset, and vomited blood upon their arrival to the scene. She was also very diaphoretic. The patient has not had any output into her colostomy bag today and has had no urine production. She is currently complaining of nausea and abdominal pain. She denies headache, change in vision, fevers, shortness of breath, diarrhea, pain with urination, and melena. pt had CT scan done,- report- SBO on ventral hernia, pt had 2 times bowel obstruction surgery and colon cancer surgery at [facility], now pt denies abdominal pain, no nausea, no vomiting, colostomy bag with stool, Past Medical/Surgical History Medical Problems: (1) Carcinoma of colon Status: Resolved (2) Essential hypertension Status: Chronic (3) Gastroenteritis Status: Resolved (4) Gastroesophageal reflux disease Status: Chronic (5) History of Clostridium difficile Status: Resolved (6) MRSA (methicillin resistant Staphylococcus aureus) Status: Resolved (7) Pacemaker Status: Chronic (8) Total colectomy Status: Chronic Surgical Problems: (1) S/P colostomy Status: Resolved (2) S/P ureterostomy Status: Resolved Family History Heart disease Social History Smoking Status: Unknown if Ever Smoked Smokeless Tobacco Use: No Alcohol Use: none Drug Use: none Marital Status: Housing status: lives alone Occupational Status: retired Immunizations History of Influenza Vaccine: No Influenza Vaccine Date: Jun 03, 2010 History of Tetanus Vaccine?: Unknown History of Pneumococcal: No Pneumococcal Date: Aug 27, 2009 History of Hepatitis B Vaccine: Unknown Multi-Drug Resistant Organisms History of MDRO: No Type of MDRO: MRSA Allergies Coded Allergies: Sulfamethoxazole w/Trimethoprim (Verified Allergy, Unknown, HIVES, 12/08/16 ) Lorazepam (Verified Adverse Reaction, Severe, DELIRIUM, 12/08/16) WORSENING of agitation and delirium. Morphine (Verified Adverse Reaction, Mild, CONFUSION, EXTREME AGITATION, ) Haloperidol (Verified Adverse Reaction, Unknown, OVERSEDATION IN THE PAST , 12/08/16) Listed on [facility]. Uncoded Allergies: BENGAY (Adverse Reaction, Intermediate, RASH, 11/19/16) Home Medications Scheduled Acetaminophen (Tylenol), 650 MG PO TID [id number] (Beano), 2 TABS PO QID/UD Cholecalciferol (Vitamin D-3), 2,000 UNIT PO DAILY Cyanocobalamin (Vitamin B12), 1,000 MCG PO DAILY Fluticasone Propionate (Nasal) (Flonase Allergy Relief), 2 SPRAYS ARI QAM Hydroxychloroquine Sulfate (Plaquenil), 200 MG PO DAILY Ibandronate Sodium (Boniva), 150 MG PO MONTHLY Lactase (Lac-Dose), 3,000 UNIT PO TID Lidocaine (Lidoderm Patch 5%), 2 PATCH TOP DAILY Magnesium Hydroxide (Milk of Magnesia), 30 ML PO UD Magnesium Oxide (Mag-Ox), 400 MG PO TID Metoprolol Tartrate (Lopressor), 50 MG PO Q12 Pancrelipase (Lipase-Protease- (Creon), 24,000 UNITS PO 5XD Polyethylene Glycol 3350 (Miralax), 8.5 GM PO DAILY Potassium Chloride (Potassium Chloride Er), 1 TAB PO TID Prednisone Tab (Prednisone), 10 MG PO UD Ranitidine (Zantac), 150 MG PO BID Simethicone (Ra Gas Relief), 1 TAB PO TID Venlafaxine Hcl (Venlafaxine Hcl Er), 75 MG PO DAILY Scheduled PRN Ondansetron Hcl (Zofran), 4 MG PO Q4H PRN for Nausea or Vomiting Polyvinyl Alcohol (Artificial Tears), 1 DROP OPB QID PRN for PRN Tramadol (Ultram), 50 MG PO Q4H PRN for Pain Review of Systems Constitutional: No chills, No fatigue, No fever, No problem reported, No sweats , No weakness, No weight loss Eyes: No diplopia, No discharge, No eye pain, No problem reported, No redness, No worsening of vision ENT: No dental problems, No hearing loss, No nasal symptoms, No problem reported, No sore throat, No tinnitus, No trouble swallowing, No unusual epistaxis Respiratory: No cough, No dyspnea at rest, No dyspnea on exertion, No hemoptysis, No problem reported, No shortness of breath, No sputum, No wheezing Cardiovascular: + problem reported (pacemaker), No PND, No chest pain, No claudication, No edema, No orthopnea, No palpitations Abdomen: No GI bleeding, No constipation, No diarrhea, No nausea, No pain, No problem reported, No vomiting Neurologic: No balance problems, No memory loss, No numbness/tingling, No paralysis, No problem reported, No vertigo, No weakness Hematologic / Lymphatic: No abnormal bleeding/bruising, No clotting problems, No night sweats, No problem reported, No swollen lymph nodes Physical Exam Vital Signs Date Time Temp Pulse Resp B/P Pulse Ox O2 Delivery O2 Flow Rate FiO2 12/09/16 00:24 84 16 159/90 100 Nasal Cannula 2.0 12/08/16 23:11 98 16 178/109 91 Room Air 12/08/16 23:02 36.6 95 22 213/139 12/08/16 22:46 94 General Appearance: WD/WN Head: normocephalic Eyes: normal inspection ENT: normal ENT inspection Neck: supple, no JVD Respiratory/Chest: chest non-tender, lungs clear Cardiovascular: regular rate, rhythm, no edema, no JVD Abdomen/GI: normal bowel sounds, non tender, soft, no organomegaly (colostomy and urine-bag( fistula)) Diagnostics Laboratory Results Results Past 24 Hours Test 12/08/16 22:52 12/09/16 00:05 Range/Units White Blood Count 30.67 4.8-10.8 K/uL Red Blood Count 4.80 4.2-5.4 M/uL Hemoglobin 15.4 12.0-16.0 g/dL Hematocrit 45.3 37-47 % Mean Corpuscular Volume 94.4 80-100 fL Mean Corpuscular Hemoglobin 32.1 25-34 pg Mean Corpuscular Hemoglobin Concent 34.0 32-36 g/dl Platelet Count 491 130-400 K/uL Mean Platelet Volume 9.2 7.4-10.4 fL Neutrophils (%) (Auto) 86.5 % Lymphocytes (%) (Auto) 3.8 % Monocytes (%) (Auto) 9.2 % Eosinophils (%) (Auto) 0.0 % Basophils (%) (Auto) 0.1 % Neutrophils # (Auto) 26.53 1.4-6.5 K/uL Lymphocytes # (Auto) 1.17 1.2-3.4 K/uL Monocytes # (Auto) 2.82 0.11-0.59 K/uL Eosinophils # (Auto) 0.00 0-0.5 K/uL Basophils # (Auto) 0.02 0-0.2 K/uL RDW Standard Deviation 44.3 36.4-46.3 fL RDW Coefficient of Variation 12.7 11.5-14.5 % Immature Granulocyte % (Auto) 0.4 % Immature Granulocyte # (Auto) 0.13 0.00-0.02 K/uL Toxic Vacuolation OCCASIONAL Sodium Level 137 136-145 mmol/L Potassium Level 4.9 3.5-5.1 mmol/L Chloride Level 99 98-107 mmol/L Carbon Dioxide Level 25 21-32 mmol/L Anion Gap 13.0 3-11 mmol/L Blood Urea Nitrogen 32 7-18 mg/dl Creatinine 1.40 0.60-1.20 mg/dl Est Creatinine Clear Calc Drug Dose 17.8 ml/min Estimated GFR () 39.3 Estimated GFR (Non- 33.9 BUN/Creatinine Ratio 22.6 10-20 Random Glucose 169 70-99 mg/dl Calcium Level 10.1 8.5-10.1 mg/dl Total Bilirubin 0.7 0.2-1 mg/dl Direct Bilirubin 0.2 0-0.2 mg/dl Aspartate Amino Transf (AST/SGOT) 22 15-37 U/L Alanine Aminotransferase (ALT/SGPT) 36 12-78 U/L Alkaline Phosphatase 113 45-117 U/L Troponin I < 0.015 0-0.045 ng/ml Total Protein 7.9 6.4-8.2 gm/dl Albumin 3.8 3.4-5.0 gm/dl Lipase 803 73-393 U/L Urine Color ORANGE Urine Appearance CLOUDY CLEAR Urine pH 7.5 4.5-7.5 Urine Specific Franklin 1.017 1.000-1.030 Urine Protein 1+ NEG Urine Glucose (UA) NEG NEG Urine Ketones NEG NEG Urine Occult Blood NEG NEG Urine Nitrite NEG NEG Urine Bilirubin NEG NEG Urine Urobilinogen NEG NEG Urine Leukocyte Esterase SMALL NEG Urine WBC (Auto) 0-5 /hpf Urine RBC (Auto) 0-4 /hpf Urine Hyaline Casts (Auto) 0-5 /lpf Urine Epithelial Cells (Auto) 0-5 /lpf Urine Bacteria (Auto) NEG Diagnostic Radiology CT scan- possible SBO on ventral hernia, Impression Assessment and Plan IMP-m SBO, at ventral hernia base on pt had multiple surgery at [facility], I recommend to tranfer pt to higher level care to [facility]. for further DX and treatment, D/W ER attending,
[2016-12-09 00:57] LABS: URINE AMORPHOUS SEDIMENT PRESENT (NONE PRSENT); URINE BACTERIA 3+ (NEG); URINE RBC 0-4 /hpf (0-4); URINE WBC >30 /hpf (0-5)
[2016-12-09 00:58] LABS: ZZUR CULT IF INDIC CLEAN CATCH YES
--- NOTE | 2016-12-09 02:16 | EMERGENCY ROOM VISIT NOTE ---
History Report prepared by Cristina: Elgin Lara Under the Supervision of: Dr. Higinio Ojeda D.O. First contact with patient: 22:44 Chief Complaint: CARDIAC ASSESSMENT Stated Complaint: VOMITING/CHEST PAIN History of Present Illness The patient is an 86 year old female who presents to the Emergency Room with complaints of nausea and vomiting that began at 1630, six hours prior to arrival. The patient lives in [facility] and called for emergency medical services due to nausea while taking a walk at 1630 today. Per EMS the patient did vomit shortly after onset, and vomited blood upon their arrival to the scene. She was also very diaphoretic. The patient has not had any output into her colostomy bag today and has had no urine production. She is currently complaining of nausea and abdominal pain. She denies headache, change in vision, fevers, shortness of breath, or diarrhea. 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 A total of 10 systems reviewed and were otherwise negative. Past Medical & Surgical Medical Problems: (1) Carcinoma of colon (2) Closed fracture of sternum (3) Dehydration (4) Diarrhea (5) Essential hypertension (6) Gastroenteritis (7) Gastroesophageal reflux disease (8) History of Clostridium difficile (9) MRSA (methicillin resistant Staphylococcus aureus) (10) Pacemaker (11) Total colectomy Surgical Problems: (1) S/P colostomy (2) S/P ureterostomy Family History Heart disease Social History Smoking Status: Never Smoker Alcohol Use: none Drug Use: none Marital Status: Housing Status: assisted living Occupation Status: retired Current/Historical Medications Scheduled Acetaminophen (Tylenol), 650 MG PO TID Afwef-J-Qkvlbtreqcdbg (Beano), 2 TABS PO QID/UD Cholecalciferol (Vitamin D-3), 2,000 UNIT PO DAILY Cyanocobalamin (Vitamin B12), 1,000 MCG PO DAILY Fluticasone Propionate (Nasal) (Flonase Allergy Relief), 2 SPRAYS ARI QAM Hydroxychloroquine Sulfate (Plaquenil), 200 MG PO DAILY Ibandronate Sodium (Boniva), 150 MG PO MONTHLY Lactase (Lac-Dose), 3,000 UNIT PO TID Lidocaine (Lidoderm Patch 5%), 2 PATCH TOP DAILY Magnesium Hydroxide (Milk of Magnesia), 30 ML PO UD Magnesium Oxide (Mag-Ox), 400 MG PO TID Metoprolol Tartrate (Lopressor), 50 MG PO Q12 Pancrelipase (Lipase-Protease- (Creon), 24,000 UNITS PO 5XD Polyethylene Glycol 3350 (Miralax), 8.5 GM PO DAILY Potassium Chloride (Potassium Chloride Er), 1 TAB PO TID Prednisone Tab (Prednisone), 10 MG PO UD Ranitidine (Zantac), 150 MG PO BID Simethicone (Ra Gas Relief), 1 TAB PO TID Venlafaxine Hcl (Venlafaxine Hcl Er), 75 MG PO DAILY Scheduled PRN Ondansetron Hcl (Zofran), 4 MG PO Q4H PRN for Nausea or Vomiting Polyvinyl Alcohol (Artificial Tears), 1 DROP OPB QID PRN for PRN Tramadol (Ultram), 50 MG PO Q4H PRN for Pain Allergies Coded Allergies: Sulfamethoxazole w/Trimethoprim (Verified Allergy, Unknown, HIVES, 12/08/16 ) Lorazepam (Verified Adverse Reaction, Severe, DELIRIUM, 12/08/16) WORSENING of agitation and delirium. Morphine (Verified Adverse Reaction, Mild, CONFUSION, EXTREME AGITATION, ) Haloperidol (Verified Adverse Reaction, Unknown, OVERSEDATION IN THE PAST , 12/08/16) Listed on [facility]. Uncoded Allergies: BENGAY (Adverse Reaction, Intermediate, RASH, 11/19/16) Physical Exam Vital Signs Date Time Temp Pulse Resp B/P Pulse Ox O2 Delivery O2 Flow Rate FiO2 12/09/16 02:06 81 12/09/16 01:27 87 16 146/87 96 Nasal Cannula 2.0 12/09/16 00:24 84 16 159/90 100 Nasal Cannula 2.0 12/08/16 23:11 98 16 178/109 91 Room Air 12/08/16 23:02 36.6 95 22 213/139 12/08/16 22:46 94 Physical Exam GENERAL: Patient is sitting up in bed, moderate distress, ill appearing, holding abdomen. EYE EXAM: normal conjunctiva OROPHARYNX: no exudate, no erythema, lips, buccal mucosa, and tongue normal and mucous membranes are dry NECK: supple, no nuchal rigidity, no adenopathy, non-tender LUNGS: Clear to auscultation. Normal chest wall mechanics HEART: no murmurs, S1 normal and S2 normal ABDOMEN: Ostomy bag without output, no urine present in urostomy bag in LLQ of abdomen. diffuse tenderness, hypoactive bowel sounds. SKIN: no rashes and no bruising UPPER EXTREMITIES: upper extremities are grossly normal. LOWER EXTREMITIES: No pitting edema. NEURO EXAM: Alert, follows commands, no focal deficit appreciated. Medical Decision & Procedures ER Provider Diagnostic Interpretation: Radiology results as stated below per my review and the radiologist's interpretation: Chest X-RAY Portable AP Upright 1 View: Pacemaker located along right chest wall, normal cardiac silhouette, prominence of the left hilar region- likely secondary to rotation. . CT ABDOMEN & PELVIS: Comparison 05/20/2016 There are now dilated small bowel leading to and contained within the ventral hernia and transition into collapsed small bowel leading away concerning for small bowel obstruction. Right and left abdomen ostomy again noted. Pacemaker Solid Organs appear within limits. The gallbladder is distended without CT visible stones or surrounding inflammatory change Right lower quadrant bowel containing small lateral ventral hernia again seen for example axial 44 No evidence of free air or free fluid Corrales artifact from left femoral sliding dynamic compression screw Moderate to severe nonacute appearing L1 compression fracture Possible sacral insufficiency fracture Radiologist: Renan Crum M.D. Laboratory Results 12/08/16 22:52 Red Blood Count 4.80, Mean Corpuscular Volume 94.4, Mean Corpuscular Hemoglobin 32.1, Mean Corpuscular Hemoglobin Concent 34.0, Mean Platelet Volume 9.2, Neutrophils (%) (Auto) 86.5, Lymphocytes (%) (Auto) 3.8, Monocytes (%) (Auto) 9.2, Eosinophils (%) (Auto) 0.0, Basophils (%) (Auto) 0.1, Neutrophils # (Auto) 26.53, Lymphocytes # (Auto) 1.17, Monocytes # (Auto) 2.82, Eosinophils # (Auto) 0.00, Basophils # (Auto) 0.02 12/08/16 22:52 Test 12/08/16 22:52 12/09/16 00:05 12/09/16 02:09 White Blood Count 30.67 K/uL (4.8-10.8) Red Blood Count 4.80 M/uL (4.2-5.4) Hemoglobin 15.4 g/dL (12.0-16.0) Hematocrit 45.3 % (37-47) Mean Corpuscular Volume 94.4 fL (80-100) Mean Corpuscular Hemoglobin 32.1 pg (25-34) Mean Corpuscular Hemoglobin Concent 34.0 g/dl (32-36) Platelet Count 491 K/uL (130-400) Mean Platelet Volume 9.2 fL (7.4-10.4) Neutrophils (%) (Auto) 86.5 % Lymphocytes (%) (Auto) 3.8 % Monocytes (%) (Auto) 9.2 % Eosinophils (%) (Auto) 0.0 % Basophils (%) (Auto) 0.1 % Neutrophils # (Auto) 26.53 K/uL (1.4-6.5) Lymphocytes # (Auto) 1.17 K/uL (1.2-3.4) Monocytes # (Auto) 2.82 K/uL (0.11-0.59) Eosinophils # (Auto) 0.00 K/uL (0-0.5) Basophils # (Auto) 0.02 K/uL (0-0.2) RDW Standard Deviation 44.3 fL (36.4-46.3) RDW Coefficient of Variation 12.7 % (11.5-14.5) Immature Granulocyte % (Auto) 0.4 % Immature Granulocyte # (Auto) 0.13 K/uL (0.00-0.02) Toxic Vacuolation OCCASIONAL Anion Gap 13.0 mmol/L (3-11) Est Creatinine Clear Calc Drug Dose 17.8 ml/min Estimated GFR () 39.3 Estimated GFR (Non- 33.9 BUN/Creatinine Ratio 22.6 (10-20) Calcium Level 10.1 mg/dl (8.5-10.1) Total Bilirubin 0.7 mg/dl (0.2-1) Direct Bilirubin 0.2 mg/dl (0-0.2) Aspartate Amino Transf (AST/SGOT) 22 U/L (15-37) Alanine Aminotransferase (ALT/SGPT) 36 U/L (12-78) Alkaline Phosphatase 113 U/L (45-117) Troponin I < 0.015 ng/ml (0-0.045) Total Protein 7.9 gm/dl (6.4-8.2) Albumin 3.8 gm/dl (3.4-5.0) Lipase 803 U/L (73-393) Urine Color ORANGE Urine Appearance CLOUDY (CLEAR) Urine pH 7.5 (4.5-7.5) Urine Specific [place] 1.017 (1.000-1.030) Urine Protein 1+ (NEG) Urine Glucose (UA) NEG (NEG) Urine Ketones NEG (NEG) Urine Occult Blood NEG (NEG) Urine Nitrite NEG (NEG) Urine Bilirubin NEG (NEG) Urine Urobilinogen NEG (NEG) Urine Leukocyte Esterase SMALL (NEG) Urine WBC (Auto) /hpf (0-5) Urine RBC (Auto) /hpf (0-4) Urine Hyaline Casts (Auto) /lpf (0-5) Urine Epithelial Cells (Auto) /lpf (0-5) Urine Bacteria (Auto) (NEG) Urine RBC 0-4 /hpf (0-4) Urine WBC >30 /hpf (0-5) Urine Epithelial Cells 5-10 /lpf (0-5) Urine Triple Phosphate Crystals PRESENT (NONE PRSENT) Urine Amorphous Sediment PRESENT (NONE PRSENT) Urine Bacteria 3+ (NEG) Laboratory results per my review. Medications Administered Medications (Trade) Dose Ordered Sig/Gonzalo Route Start Time Stop Time Status Last Admin Dose Admin Sodium Chloride (Nss 1000ml) 1,000 ml @ 999 mls/hr Q1H1M STAT IV 12/08/16 22:51 12/08/16 23:51 DC 12/08/16 23:07 999 MLS/HR Fentanyl Citrate (Fentanyl Inj) 25 mcg NOW STAT IV 12/08/16 23:51 12/08/16 23:52 DC 12/08/16 23:57 25 MCG Piperacillin Sod/ Tazobactam Sod (Zosyn Iv) 3.375 gm NOW STAT IV 12/08/16 23:53 12/08/16 23:55 DC 12/09/16 00:19 3.375 GM ECG Indication: abdominal pain Rate (beats per minute): 96 Findings: no ectopy, other (LAD) ED Course ED COURSE: Vital signs were reviewed and showed hypertensive vitals The patients medical record was reviewed The above diagnostic studies were performed and reviewed. ED treatments and interventions as stated above. 2245: The patient was evaluated in room A11B. A complete history and physical examination was performed. 2251: Ordered Dilaudid 0.5 mg IV, Sodium Chloride 1000 mL @ 999 mL/hr IV. 2351: Ordered Fentanyl Citrate 25 mcg IV. 2353: Ordered Zosyn 3.375 gm IV. 0014: Dr. Jerry is observing the patient at this time. 0022: Ordered Sodium Chloride 500 mL @ 999 mL/hr IV. 0036: Dr. Jerry has seen the patient at this time, he would like the patient to be sent to [place] 0055: I discussed the case with the son and power of employment law attorney at this time for 15-20 minutes. They would prefer that the patient stayed here and not be transferred. 0106: Upon a subsequent discussion with Dr. Jerry, he has reduced the hernia and states that the patient can stay inpatient here. 0118: I discussed the case with Wyatt - Internal Medicine Resident at this time, he will evaluate the patient for further treatment. 0123: Upon reevaluation, the patient is resting in bed.I discussed my findings with the patient's power of employment law attorney and they understands and agrees with the treatment plan. Based on the patients age, coexisting illnesses, exam and lab findings the decision to treat as an inpatient was made. The patient remained stable while under my care. The patient will be evaluated for further management. Medical Decision Differential diagnoses includes but is not limited to gastritis, peptic ulcer disease, GERD, gallbladder disease, pancreatitis, small bowel obstruction, acute coronary syndrome, pericarditis, ischemic bowel, irritable bowel disease, irritable bowel syndrome, appendicitis, diverticulitis, malignancy, hernia, urinary tract infection, torsion, perforation, trauma, infectious. Patient is an 86 her old female who presents the ER for diffuse abdominal pain associated with nausea and vomiting. She has had no output in her ostomy today. She does have previous obstructions. Labs show a leukocytosis of 30, 000 along with an unremarkable BMP, LFTs, bilirubin and troponin. EKG was unchanged. Lipase was elevated at 800. UA had greater than 30 white cells and small amount of esterase along with +3 bacteria. I question whether this is colonization versus UTI. She was given a dose of Zosyn with her significant WBC and UA. CT noncontrast shows a small bowel obstruction likely secondary to a hernia. She was evaluated by general surgery immediately following the CT report. He notes that the hernia is reducible and does not believe that this is causing her leukocytosis. He updated family and recommended transfer to [place] as she has had her previous surgeries there. He does not believe that she needs surgery at this time as he believes the obstruction is now relieved. I updated family regards to transfer they requested stay at [facility]. I then rediscussed the case with Dr. Jerry who agreed that this was reasonable if patient was admitted to internal medicine. I did discuss the case with [place] general surgery and attempted contact her [place] colorectal surgeon but was unsuccessful since he is not on-call. I updated family at bedside. She was given a dose of fentanyl. She was given a bolus normal saline. She has rested comfortably and was admitted to internal medicine. No NG was placed as she has had no vomiting while in the ER. Consults Time Called: [phone] Consulting Physician: Wyatt - Internal Medicine Resident Returned Call: 011 I discussed the case with [facility] Internal Medicine Resident at this time, he will evaluate the patient for further treatment. Additional Consults: Time Called: 35 Consulted Physician: Dr. Jerry - General Surgery Returned Call: 35 Additional Comments: Dr. Jerry has seen the patient at this time, he would like the patient to be sent to [place] Impression Primary Impression: SBO (small bowel obstruction) Additional Impressions: Leukocytosis UTI (urinary tract infection) Scribe Attestation The scribe's documentation has been prepared under my direction and personally reviewed by me in its entirety. I confirm that the note above accurately reflects all work, treatment, procedures, and medical decision making performed by me. Departure Information Dispostion Being Evaluated By Hospitalist Hugo George (PCP) Patient Instructions My [facility] Health Problem Qualifiers Additional Impressions: Leukocytosis Leukocytosis type: unspecified Qualified Codes: D72.829 - Elevated white blood cell count, unspecified UTI (urinary tract infection) Urinary tract infection type: acute cystitis Hematuria presence: with hematuria Qualified Codes: N30.01 - Acute cystitis with hematuria
[2016-12-09] MEDS ORDERED: HYDROmorphone INJ 0.5 MG/0.5 ML SYR IV PRN (02:30)
[2016-12-09] MEDS ORDERED: ALUMINUM/MAGNESIUM/SIMETH (MAALOX MAX) 30 ML UDC PO PRN (02:30)
[2016-12-09] MEDS ORDERED: ONDANSETRON INJ 2 MG/ML 2 ML VIAL IV PRN (02:30)
[2016-12-09] MEDS ORDERED: MAGNESIUM HYDROXIDE SUSP 30 ML UDC PO PRN (02:30)
[2016-12-09] MEDS ORDERED: POLYETHYLENE (MIRALAX) 17 GM PACK PO PRN (02:30)
[2016-12-09] MEDS ORDERED: TRAMADOL HCL 50 MG TAB PO PRN (02:45)
[2016-12-09] MEDS ORDERED: FENTANYL CITRATE INJ 50 MCG/1 ML 2 ML VIAL IV PRN (02:45)
[2016-12-09] MEDS ORDERED: ARTIFICIAL TEARS OP SOLN OPB PRN ×2 (02:45)
[2016-12-09] MEDS ORDERED: ONDANSETRON 4 MG TAB PO PRN (02:45)
[2016-12-09] MEDS ORDERED: NON-FORMULARY MEDICATION (Alpha-D-Galactosidase (Beano) 2 TABS) PO SCH (02:45)
--- NOTE | 2016-12-09 02:47 | History and Physical ---
History & Physical Date & Time of Service: Dec 09, 2016 at 02:41 Chief Complaint: Vomiting/Chest Pain Primary Care Physician: Jere Neal M.D. History of Present Illness Source: patient, family (son) Patient presents to the ED after experiencing nausea and vomiting this afternoon while taking a walk. The cognitive vomitus was apparently bloody. It was also noted that she had reduce ileostomy output in the past 24 hours. She notes that she has not had any changes in her urostomy output. She is valid in the emergency department for possible small bowel obstruction, which was ultimately confirmed by abdominal CT scan. Dr. Jerry from surgery has evaluated the patient, and it appears that the obstruction may have spontaneous clear down the ED. Ileostomy output has picked up again. She is noted to have a history of extensive of bowel surgeries and small related to colon cancer. As a sequela of this, she is also had previous episodes of small bowel obstruction. At this time she states that her abdominal discomfort is relatively unchanged from arrival, but states that she is tired more than anything else. States that in some discomfort in both her right and left lower quadrants, she cannot describe the type of pain or severity. She states at this time that her nausea is much improved, and she is not vomited. In regards other systems, she denies fevers chills, night sweats. She denies chest pain, shortness of breath, wheezing, palpitations, lightheadedness or dizziness, syncope, lower extremity edema. She does state in general that in the past 1 month she feels that she has had a generalized decline, and in light of this wanted to treat her obstruction and initially in a conservative manner in discussion with Dr. Jerry and her regular surgeon in [place]. Past Medical/Surgical History Medical Problems: (1) Carcinoma of colon Status: Resolved (2) Essential hypertension Status: Chronic (3) Gastroenteritis Status: Resolved (4) Gastroesophageal reflux disease Status: Chronic (5) History of Clostridium difficile Status: Resolved (6) MRSA (methicillin resistant Staphylococcus aureus) Status: Resolved (7) Pacemaker Status: Chronic (8) Total colectomy Status: Chronic Surgical Problems: (1) S/P colostomy Status: Resolved (2) S/P ureterostomy Status: Resolved Family History Heart disease No other family history was elicited Social History Smoking Status: Never Smoker Smokeless Tobacco Use: No Alcohol Use: none Drug Use: none Marital Status: Housing status: lives alone Occupational Status: retired Immunizations History of Influenza Vaccine: No Influenza Vaccine Date: Jun 03, 2010 History of Tetanus Vaccine?: Unknown History of Pneumococcal: No Pneumococcal Date: Aug 27, 2009 History of Hepatitis B Vaccine: Unknown Multi-Drug Resistant Organisms History of MDRO: No Type of MDRO: MRSA Allergies Coded Allergies: Sulfamethoxazole w/Trimethoprim (Verified Allergy, Unknown, HIVES, 12/08/16 ) Lorazepam (Verified Adverse Reaction, Severe, DELIRIUM, 12/08/16) WORSENING of agitation and delirium. Morphine (Verified Adverse Reaction, Mild, CONFUSION, EXTREME AGITATION, ) Haloperidol (Verified Adverse Reaction, Unknown, OVERSEDATION IN THE PAST , 12/08/16) Listed on [facility]. Uncoded Allergies: BENGAY (Adverse Reaction, Intermediate, RASH, 11/19/16) Home Medications Scheduled Acetaminophen (Tylenol), 650 MG PO TID Mqkdo-F-Weorztnuhrabo (Beano), 2 TABS PO QID/UD Cholecalciferol (Vitamin D-3), 2,000 UNIT PO DAILY Cyanocobalamin (Vitamin B12), 1,000 MCG PO DAILY Fluticasone Propionate (Nasal) (Flonase Allergy Relief), 2 SPRAYS ARI QAM Hydroxychloroquine Sulfate (Plaquenil), 200 MG PO DAILY Ibandronate Sodium (Boniva), 150 MG PO MONTHLY Lactase (Lac-Dose), 3,000 UNIT PO TID Lidocaine (Lidoderm Patch 5%), 2 PATCH TOP DAILY Magnesium Hydroxide (Milk of Magnesia), 30 ML PO UD Magnesium Oxide (Mag-Ox), 400 MG PO TID Metoprolol Tartrate (Lopressor), 50 MG PO Q12 Pancrelipase (Lipase-Protease- (Creon), 24,000 UNITS PO 5XD Polyethylene Glycol 3350 (Miralax), 8.5 GM PO DAILY Potassium Chloride (Potassium Chloride Er), 1 TAB PO TID Prednisone Tab (Prednisone), 10 MG PO UD Ranitidine (Zantac), 150 MG PO BID Simethicone (Ra Gas Relief), 1 TAB PO TID Venlafaxine Hcl (Venlafaxine Hcl Er), 75 MG PO DAILY Scheduled PRN Ondansetron Hcl (Zofran), 4 MG PO Q4H PRN for Nausea or Vomiting Polyvinyl Alcohol (Artificial Tears), 1 DROP OPB QID PRN for PRN Tramadol (Ultram), 50 MG PO Q4H PRN for Pain Review of Systems A 10 point review of systems was otherwise negative unless stated above in the history of present illness Physical Exam Vital Signs Date Time Temp Pulse Resp B/P Pulse Ox O2 Delivery O2 Flow Rate FiO2 12/09/16 02:28 83 16 148/94 96 Nasal Cannula 2.0 12/09/16 02:06 81 12/09/16 01:27 87 16 146/87 96 Nasal Cannula 2.0 12/09/16 00:24 84 16 159/90 100 Nasal Cannula 2.0 12/08/16 23:11 98 16 178/109 91 Room Air 12/08/16 23:02 36.6 95 22 213/139 12/08/16 22:46 94 General Appearance: WD/WN, no apparent distress, + thin Head: normocephalic Eyes: normal inspection, + pertinent finding (dry mucous membranes) ENT: normal ENT inspection, hearing grossly normal, pharynx normal Neck: supple, no adenopathy, no JVD Respiratory/Chest: chest non-tender, lungs clear, no respiratory distress Cardiovascular: regular rate, rhythm, no edema, no JVD Abdomen/GI: normal bowel sounds, non tender, soft, no organomegaly (colostomy and urine-bag( fistula)), + pertinent finding (pale liquid stool output through her ileostomy) Back: no CVA tenderness, no muscle spasm Extremities/Musculoskelatal: no calf tenderness, no pedal edema Neurologic/Psych: alert, normal mood/affect, oriented x 3 Skin: normal color, warm/dry, no rash Lymphatic: no adenopathy Diagnostics Laboratory Results Results Past 24 Hours Test 12/08/16 22:52 12/09/16 00:05 12/09/16 02:09 Range/Units White Blood Count 30.67 4.8-10.8 K/uL Red Blood Count 4.80 4.2-5.4 M/uL Hemoglobin 15.4 12.0-16.0 g/dL Hematocrit 45.3 37-47 % Mean Corpuscular Volume 94.4 80-100 fL Mean Corpuscular Hemoglobin 32.1 25-34 pg Mean Corpuscular Hemoglobin Concent 34.0 32-36 g/dl Platelet Count 491 130-400 K/uL Mean Platelet Volume 9.2 7.4-10.4 fL Neutrophils (%) (Auto) 86.5 % Lymphocytes (%) (Auto) 3.8 % Monocytes (%) (Auto) 9.2 % Eosinophils (%) (Auto) 0.0 % Basophils (%) (Auto) 0.1 % Neutrophils # (Auto) 26.53 1.4-6.5 K/uL Lymphocytes # (Auto) 1.17 1.2-3.4 K/uL Monocytes # (Auto) 2.82 0.11-0.59 K/uL Eosinophils # (Auto) 0.00 0-0.5 K/uL Basophils # (Auto) 0.02 0-0.2 K/uL RDW Standard Deviation 44.3 36.4-46.3 fL RDW Coefficient of Variation 12.7 11.5-14.5 % Immature Granulocyte % (Auto) 0.4 % Immature Granulocyte # (Auto) 0.13 0.00-0.02 K/uL Toxic Vacuolation OCCASIONAL Sodium Level 137 136-145 mmol/L Potassium Level 4.9 3.5-5.1 mmol/L Chloride Level 99 98-107 mmol/L Carbon Dioxide Level 25 21-32 mmol/L Anion Gap 13.0 3-11 mmol/L Blood Urea Nitrogen 32 7-18 mg/dl Creatinine 1.40 0.60-1.20 mg/dl Est Creatinine Clear Calc Drug Dose 17.8 ml/min Estimated GFR () 39.3 Estimated GFR (Non- 33.9 BUN/Creatinine Ratio 22.6 10-20 Random Glucose 169 70-99 mg/dl Calcium Level 10.1 8.5-10.1 mg/dl Total Bilirubin 0.7 0.2-1 mg/dl Direct Bilirubin 0.2 0-0.2 mg/dl Aspartate Amino Transf (AST/SGOT) 22 15-37 U/L Alanine Aminotransferase (ALT/SGPT) 36 12-78 U/L Alkaline Phosphatase 113 45-117 U/L Troponin I < 0.015 0-0.045 ng/ml Total Protein 7.9 6.4-8.2 gm/dl Albumin 3.8 3.4-5.0 gm/dl Lipase 803 73-393 U/L Urine Color ORANGE Urine Appearance CLOUDY CLEAR Urine pH 7.5 4.5-7.5 Urine Specific [place] 1.017 1.000-1.030 Urine Protein 1+ NEG Urine Glucose (UA) NEG NEG Urine Ketones NEG NEG Urine Occult Blood NEG NEG Urine Nitrite NEG NEG Urine Bilirubin NEG NEG Urine Urobilinogen NEG NEG Urine Leukocyte Esterase SMALL NEG Urine WBC (Auto) 0-5 /hpf Urine RBC (Auto) 0-4 /hpf Urine Hyaline Casts (Auto) 0-5 /lpf Urine Epithelial Cells (Auto) 0-5 /lpf Urine Bacteria (Auto) NEG Urine RBC 0-4 0-4 /hpf Urine WBC >30 0-5 /hpf Urine Epithelial Cells 5-10 0-5 /lpf Urine Triple Phosphate Crystals PRESENT NONE PRSENT Urine Amorphous Sediment PRESENT NONE PRSENT Urine Bacteria 3+ NEG Microbiology Results 12/09/16 Urine Culture, Received Pending Diagnostic Radiology CT abdomen and pelvis, as interpreted by stat rad Dilated small bowel leading to an contained within ventral hernia and transition into collapsed small bowel bleeding away concerning for small bowel obstruction Right and left abdomen ostomy Pacemaker Solid organs appear within limits Gallbladder is distended without CT visible stones or surrounding inflammatory change No evidence of free air or free fluid [place] artifact from left femoral sliding dynamic compression screw Moderate to severe nonacute-appearing L1 compression fracture Possible sacral insufficiency fracture Impression Assessment and Plan Very pleasant 86 or female, presenting with acute small bowel obstruction, that appears to have resolved clinically in the emergency department. Output to the ileostomy bag has picked up again, the patient is not noting any further episodes of emesis. Of note, the patient does follow up with Dr. Cory Fortune at [facility] for previous surgeries. After review of the ED notes, initial plan was to have the patient transferred for surgical evaluation at a facility that was familiar with her complex surgical history. However the patient opted to remain at [facility], as she wanted to discuss further with both our surgical specialty here as well as Dr. Fortune whether surgical intervention would ultimately be required. Plan at this time is for close observation, and reassessment in the morning as to whether a transfer is required. She does have an extensive list of by mouth home medications, that unfortunately need to be kept on hold at this time until further recommendations from surgery available with regards to advancing diet and by mouth intake including tablets. Our plan for her is as follows Acute small bowel obstruction - Keep nothing by mouth; hold all by mouth meds until further evaluation by surgery - No further episodes of emesis, therefore we have held off on deploying an NG tube - Patient not in acute pain at this time, we'll treat with IV Tylenol PRN - General surgery has been consultative (Dr. Jerry) and will follow the patient; the recommendations are appreciated Acute kidney injury - Creatinine on arrival 1.4; baseline creatinine 0.9 - Mucous members appear dry, I suspect a MAGY is secondary to dehydration - Patient received 2 L normal saline in the ED - Continue hydration with normal saline at 80 mL per hour - Avoid nephrotoxins - Follow daily BMP Urinary tract infection - WBC noted to be 30; possible added contribution of acute bowel obstruction to leukocytosis - Pipracil and tazobactam IV given in the emergency department - The patient does not meet criteria for SIRS - Lactate elevated at 3.0 but does not meet criteria for management for sepsis guidelines; will repeat in 24 hours - Continue with IV Rocephin on admission - Urine cultures pending Osteoarthritis - IV Tyenol PRN - Continue Lidoderm patch Hypertension - Hold metoprolol as the patient is nothing by mouth - When necessary hydralazine on med list DVT prophylaxis - The patient has an aching I, therefore Lovenox is contraindicated - Heparin 5000 TID - SCD to the knee Code Status - DO NOT RESUSCITATE Disposition - Med Surg - OT and PT ordered Level of Care Med/Surg Resuscitation Status DO NOT RESUSCITATE VTE Prophylaxis VTE Risk Assessment Done? Y/N: Yes Risk Level: Moderate Given or contraindicated: Unfractionated heparin SQ Assessment and Plan Attending Addendum: I have physically seen and examined this patient, have directed their medical care, have supervised the medical residents activities, and agree with the H&P as noted above, with the following changes: NONE
[2016-12-09] MEDS: SODIUM CHLORIDE 0.9% 1000ML 1,000 ML IV SCH ×2 (03:39→16:17)
[2016-12-09] MEDS: ACETAMINOPHEN IV 100 ML IV PRN ×2 (03:43→18:48)
[2016-12-09] MEDS ORDERED: HydrALAZINE HCL 20 MG/ML VIAL IV. PRN (04:00)
[2016-12-09] MEDS ORDERED: PROMETHAZINE HCL INJ 12.5 MG in SODIUM CHLORIDE 0.9% 50ML 50 ML IV STA (04:47)
[2016-12-09 04:59] LABS: PROTHROMBIN TIME (PATIENT) 10.7 SECONDS (9.0-12.0)
[2016-12-09 05:10] LABS: BUN/CREATININE RATIO 29.2 (10-20); CALCIUM 9.1 mg/dl (8.5-10.1); CREATININE 1.2 mg/dl (0.60-1.20); POTASSIUM 4.5 mmol/L (3.5-5.1)
[2016-12-09 05:13] LABS: ALB/GLOB RATIO 0.9 (0.9-2)
[2016-12-09 05:19] LABS: HEMATOCRIT 41.9 % (37-47); MEAN CELL VOLUME 93.1 fL (80-100); MEAN CORPUSCULAR HEMOGLOBIN 30.9 pg (25-34); MEAN CORPUSCULAR HGB CONC 33.2 g/dl (32-36); MEAN PLATELET VOLUME 8.8 fL (7.4-10.4); PLATELET COUNT 387 K/uL (130-400); WHITE BLOOD COUNT 19.55 K/uL (4.8-10.8)
--- NOTE | 2016-12-09 05:49 | Surgery Progress Note ---
Surgery Progress Note Date of Service Dec 09, 2016. Subjective + feeling well pt is doing better, pt denies abdominal pain, no nausea, no vomiting, full stool in colostomy bag, Objective Vital Signs: Date Time Temp Pulse Resp B/P Pulse Ox O2 Delivery O2 Flow Rate FiO2 12/09/16 04:21 36.4 80 18 131/73 98 Nasal Cannula 2.0 12/09/16 03:15 Nasal Cannula 2.0 12/09/16 02:53 36.6 83 16 148/94 96 12/09/16 02:28 83 16 148/94 96 Nasal Cannula 2.0 12/09/16 02:06 81 12/09/16 01:27 87 16 146/87 96 Nasal Cannula 2.0 12/09/16 00:24 84 16 159/90 100 Nasal Cannula 2.0 12/08/16 23:11 98 16 178/109 91 Room Air 12/08/16 23:02 36.6 95 22 213/139 12/08/16 22:46 94 General Appearance: WD/WN Head: normocephalic Neck: supple, no JVD Respiratory/Chest: chest non-tender, lungs clear Cardiovascular: regular rate, rhythm, no edema Abdomen: normal bowel sounds, non tender, non distended, soft Extremities: normal range of motion, non-tender, normal inspection Laboratory Results: Results Past 24 Hours Test 12/08/16 22:52 12/09/16 00:05 12/09/16 02:37 12/09/16 04:45 Range/Units White Blood Count 30.67 19.55 4.8-10.8 K/uL Red Blood Count 4.80 4.50 4.2-5.4 M/uL Hemoglobin 15.4 13.9 12.0-16.0 g/dL Hematocrit 45.3 41.9 37-47 % Mean Corpuscular Volume 94.4 93.1 80-100 fL Mean Corpuscular Hemoglobin 32.1 30.9 25-34 pg Mean Corpuscular Hemoglobin Concent 34.0 33.2 32-36 g/dl Platelet Count 491 387 130-400 K/uL Mean Platelet Volume 9.2 8.8 7.4-10.4 fL Neutrophils (%) (Auto) 86.5 % Lymphocytes (%) (Auto) 3.8 % Monocytes (%) (Auto) 9.2 % Eosinophils (%) (Auto) 0.0 % Basophils (%) (Auto) 0.1 % Neutrophils # (Auto) 26.53 1.4-6.5 K/uL Lymphocytes # (Auto) 1.17 1.2-3.4 K/uL Monocytes # (Auto) 2.82 0.11-0.59 K/uL Eosinophils # (Auto) 0.00 0-0.5 K/uL Basophils # (Auto) 0.02 0-0.2 K/uL RDW Standard Deviation 44.3 42.4 36.4-46.3 fL RDW Coefficient of Variation 12.7 12.6 11.5-14.5 % Immature Granulocyte % (Auto) 0.4 % Immature Granulocyte # (Auto) 0.13 0.00-0.02 K/uL Toxic Vacuolation OCCASIONAL Sodium Level 137 139 136-145 mmol/L Potassium Level 4.9 4.5 3.5-5.1 mmol/L Chloride Level 99 103 98-107 mmol/L Carbon Dioxide Level 25 27 21-32 mmol/L Anion Gap 13.0 9.0 3-11 mmol/L Blood Urea Nitrogen 32 35 7-18 mg/dl Creatinine 1.40 1.20 0.60-1.20 mg/dl Est Creatinine Clear Calc Drug Dose 17.8 20.7 ml/min Estimated GFR () 39.3 47.4 Estimated GFR (Non- 33.9 40.9 BUN/Creatinine Ratio 22.6 29.2 10-20 Random Glucose 169 98 70-99 mg/dl Calcium Level 10.1 9.1 8.5-10.1 mg/dl Total Bilirubin 0.7 0.9 0.2-1 mg/dl Direct Bilirubin 0.2 0-0.2 mg/dl Aspartate Amino Transf (AST/SGOT) 22 19 15-37 U/L Alanine Aminotransferase (ALT/SGPT) 36 32 12-78 U/L Alkaline Phosphatase 113 93 45-117 U/L Troponin I < 0.015 0-0.045 ng/ml Total Protein 7.9 7.0 6.4-8.2 gm/dl Albumin 3.8 3.3 3.4-5.0 gm/dl Lipase 803 229 73-393 U/L Urine Color ORANGE Urine Appearance CLOUDY CLEAR Urine pH 7.5 4.5-7.5 Urine Specific [place] 1.017 1.000-1.030 Urine Protein 1+ NEG Urine Glucose (UA) NEG NEG Urine Ketones NEG NEG Urine Occult Blood NEG NEG Urine Nitrite NEG NEG Urine Bilirubin NEG NEG Urine Urobilinogen NEG NEG Urine Leukocyte Esterase SMALL NEG Urine WBC (Auto) 0-5 /hpf Urine RBC (Auto) 0-4 /hpf Urine Hyaline Casts (Auto) 0-5 /lpf Urine Epithelial Cells (Auto) 0-5 /lpf Urine Bacteria (Auto) NEG Urine RBC 0-4 0-4 /hpf Urine WBC >30 0-5 /hpf Urine Epithelial Cells 5-10 0-5 /lpf Urine Triple Phosphate Crystals PRESENT NONE PRSENT Urine Amorphous Sediment PRESENT NONE PRSENT Urine Bacteria 3+ NEG Lactic Acid Level 3.0 0.4-2.0 mmol/L Prothrombin Time 10.7 9.0-12.0 SECONDS Prothromb Time International Ratio 1.0 0.9-1.1 Globulin 3.7 2.5-4.0 gm/dl Albumin/Globulin Ratio 0.9 0.9-2 Microbiology Results 12/09/16 Urine Culture, Received Pending Assessment & Plan I was asked for F/U this pt for SBO, the SBO is resolved, full stool in colostomy bag WBC down to 19.500 repeat lactic acid today, will F/U full liquids
[2016-12-09] MEDS: HEPARIN SOD 5000 UNIT/0.5 ML CARP SQ SCH ×3 (06:19→21:51)
[2016-12-09] MEDS: PANCREAZE (LIPASE 10,500U) CAP PO SCH ×5 (06:38→22:33)
[2016-12-09] MEDS: CEFTRIAXONE SOD INJ 1 GM in DEXTROSE 5% ADD-VANTAGE 50ML 50 ML IV SCH (06:38)
--- NOTE | 2016-12-09 06:39 | DIAGNOSTIC IMAGING REPORT ---
CT SCAN OF THE ABDOMEN AND PELVIS WITHOUT CONTRAST CLINICAL HISTORY: Persistent vomiting. No bowel movements. COMPARISON STUDY: 05/20/2016 TECHNIQUE: CT scan of the abdomen and pelvis was performed from the lung bases to the proximal femurs. Images are reviewed in the axial, sagittal, and coronal planes. IV contrast was not administered for this examination. CT DOSE: 225.55 mGy.cm FINDINGS: Lower chest: The heart is normal in size and configuration, without pericardial effusion. The lung bases and pleural spaces are clear. Liver: The unenhanced liver is normal in size, contour, and attenuation. There is no intrahepatic biliary ductal dilatation. Gallbladder: Distended. No calculi visualized Spleen: Normal in size and attenuation. Pancreas: Unremarkable. Adrenal glands: There is left adrenal gland thickening. Kidneys: Is a 14 mm left renal hypodensity, statistically are presenting a cyst Bowel: There are bilateral lower quadrant ostomies. There are dilated fluid-filled small bowel loops. Distal small bowel appears to be of normal caliber. A small bowel obstruction is suspected. 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 This is present on the prior study. Evaluation of the bowel is markedly limited due to the paucity of intra-abdominal fat and the lack of intravenous and oral contrast. Peritoneum: There is no intraperitoneal free air or abdominal ascites. There is stable presacral soft tissue thickening. There is an anterior abdominal wall defect, and ventral hernia. This may be the site of the obstruction.. Vasculature: The abdominal aorta is normal in course and caliber. Adenopathy: There is a mildly enlarged 16 mm left inguinal lymph node. Pelvic viscera: Limited evaluation. Streak artifact from patient's left hip surgery. Surgically absent uterus. Skeletal structures: There is an old L1 compression fracture. There is a grade 1 spondylolisthesis of L5 and S1. The bones are osteopenic. IMPRESSION: 1. Limited study due to the lack of intravenous and oral contrast 2. Extensive postsurgical changes with bilateral lower quadrant ostomies 3. 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 Small bowel obstructive pattern, possibly secondary to the ventral hernia 5. Distended gallbladder Electronically signed by: Abrahan Woods M.D. 12/09/2016 6:37 AM Dictated Date/Time: 12/09/2016 6:27 AM
--- NOTE | 2016-12-09 06:46 | DIAGNOSTIC IMAGING REPORT ---
CHEST ONE VIEW PORTABLE CLINICAL HISTORY: Atypical chest pain COMPARISON STUDY: May 19, 2016 FINDINGS: The heart is the upper limits of normal in size. There is tortuosity/ectasia of the thoracic aorta. There is a right subclavian dual-chamber central venous pacemaker. There is no failure. There is no focal pulmonary consolidation. There are no pleural effusions.[ IMPRESSION: AP portable study. No acute findings. Electronically signed by: Abrahan Woods M.D. 12/09/2016 6:44 AM Dictated Date/Time: 12/09/2016 6:43 AM
[2016-12-09] MEDS: METOPROLOL TARTRATE 50 MG TAB PO SCH ×2 (09:00→21:43)
[2016-12-09] MEDS: CHOLECALCIFEROL 1000 INTER.UNIT TAB PO SCH (09:00)
[2016-12-09] MEDS: MAGNESIUM OXIDE 400 MG TAB PO SCH ×3 (09:00→21:44)
[2016-12-09] MEDS: LACTASE 3000 UNIT TAB PO SCH ×3 (09:00→21:52)
[2016-12-09] MEDS: VENLAFAXINE HCL XR 75 MG CAPXR PO SCH (09:00)
[2016-12-09] MEDS: RANITIDINE HCL 150 MG TAB PO SCH ×2 (09:00→21:45)
[2016-12-09] MEDS: HYDROXYCHLOROQUINE SULFATE 200 MG TAB PO SCH (09:00)
[2016-12-09] MEDS: POLYETHYLENE (MIRALAX) 17 GM PACK PO SCH (09:00)
[2016-12-09] MEDS: SIMETHICONE 80 MG CHEW PO SCH ×3 (09:00→21:39)
[2016-12-09] MEDS: LIDODERM (LIDOCAINE) PATCH 5% TD SCH (09:00)
[2016-12-09] MEDS: POTASSIUM CHLORIDE 10 MEQ TABCR PO SCH ×3 (09:00→21:38)
[2016-12-09] MEDS: CYANOCOBALAMIN 500 MCG TAB (VIT B-12) PO SCH (09:00)
[2016-12-09] MEDS: FLUTICASONE PROPIONATE NA SPR 16 GM BTL NAE SCH (09:46)
--- NOTE | 2016-12-09 10:10 | Family Medicine Progress Note ---
Progress Note Date of Service Dec 09, 2016. Subjective Pt evaluation today including: conversation w/ patient, physical exam, chart review, lab review, review of studies Pain: well controlled 86-year-old female with past medical history of hypertension, C. difficile colitis, MRSA, colon cancer status post colectomy with colostomy, GERD, pacemaker present in the ER with complaints of persistent abdominal pain, emesis and decreased ileostomy output yesterday. CT scan had revealed small bowel obstruction. She was admitted for observation and seen by general surgery. Today she feels better, has not had any more vomiting. Denies fevers with chills, chest pain, difficulty breathing. Constitutional: No chills, No fever Eyes: No worsening of vision Respiratory: No cough, No shortness of breath, No sputum, No wheezing Cardiovascular: No chest pain Abdomen: + pain (improved since yesterday), No nausea, No vomiting Medications Current Inpatient Medications Medications (Trade) Dose Ordered Sig/Gonzalo Route Start Time Stop Time Status Last Admin Dose Admin Heparin Sodium (Porcine) (Heparin Sq 5000 Unit/0.5ml) 5,000 unit Q8H SQ 12/09/16 06:00 01/08/17 05:59 12/09/16 06:19 5,000 UNIT Acetaminophen (Tylenol Tab) 650 mg Q4H PRN PO 12/09/16 02:30 01/08/17 02:29 Al Hydrox/Mg Hydrox/Simethicone (Maalox Max Susp) 15 ml Q4H PRN PO 12/09/16 02:30 01/08/17 02:29 Magnesium Hydroxide (Milk Of Magnesia Susp) 30 ml Q6H PRN PO 12/09/16 02:30 01/08/17 02:29 Polyethylene (Miralax Powder Packet) 17 gm DAILY PRN PO 12/09/16 02:30 01/08/17 02:29 Ondansetron HCl 4 mg 4 mg Q6H PRN IV 12/09/16 02:30 01/08/17 02:29 12/09/16 03:37 4 MG Sodium Chloride (Nss 1000ml) 1,000 ml @ 80 mls/hr [id number] IV 12/09/16 03:30 01/08/17 03:29 12/09/16 03:39 80 MLS/HR Fluticasone Propionate (Flonase Nasal [place]) 2 sprays QAM ARI 12/09/16 09:00 01/08/17 08:59 12/09/16 09:46 2 SPRAYS Hydroxychloroquine Sulfate (Plaquenil Tab) 200 mg DAILY PO 12/09/16 09:00 01/08/17 08:59 Lactase (Lactaid Tab) 3,000 units TID PO 12/09/16 09:00 01/08/17 08:59 Lidocaine (Lidoderm Patch 5%) 2 patch DAILY TD 12/09/16 09:00 01/08/17 08:59 Magnesium Oxide (Mag-Ox Tab) 400 mg TID PO 12/09/16 09:00 01/08/17 08:59 Metoprolol Tartrate (Lopressor Tab) 50 mg Q12 PO 12/09/16 09:00 01/08/17 08:59 Ondansetron HCl (Zofran Tab) 4 mg Q4H PRN PO 12/09/16 02:45 01/08/17 02:44 Polyethylene (Miralax Powder Packet) 8.5 gm DAILY PO 12/09/16 09:00 01/08/17 08:59 Prednisone (PredniSONE TAB) 20 mg DAILY PO 12/09/16 09:00 12/11/16 09:01 Ranitidine HCl (zANTac TAB) 150 mg BID PO 12/09/16 09:00 01/08/17 08:59 Simethicone (Mylicon Chew Tab) 80 mg TID PO 12/09/16 09:00 01/08/17 08:59 Tramadol HCl (Ultram Tab) 50 mg Q4H PRN PO 12/09/16 02:45 01/08/17 02:44 Venlafaxine HCl (effeXOR EXTENDED REL CAP) 75 mg DAILY PO 12/09/16 09:00 01/08/17 08:59 Cholecalciferol (Vitamin D Tab) 2,000 inter.unit DAILY PO 12/09/16 09:00 01/08/17 08:59 Cyanocobalamin (Vitamin B-12 Tab) 1,000 mcg DAILY PO 12/09/16 09:00 01/08/17 08:59 Miscellaneous Information (Order Awaiting Action) 1 ea QS N/A 12/09/16 08:00 01/08/17 07:59 Amylase/Lipase/ Protease (Pancreaze (Lipase 10,500U) Cap) 2 cap 5XDQ4H PO 12/09/16 07:00 01/08/17 06:59 Artificial Tears (Artificial Tears) 1 drops QID PRN OPB 12/09/16 02:45 01/08/17 02:44 Potassium Chloride 10 meq 10 meq TID PO 12/09/16 09:00 01/08/17 08:59 Acetaminophen 100 ml @ 400 mls/hr Q8H PRN IV 12/09/16 03:00 01/08/17 02:59 12/09/16 03:43 400 MLS/HR Ceftriaxone Sodium/Dextrose (Rocephin Inj/ Dextrose Add-[place] 50ML) 50 ml @ 100 mls/hr Q24H IV 12/09/16 07:00 12/19/16 06:59 12/09/16 06:38 100 MLS/HR Prednisone (PredniSONE TAB) 10 mg DAILY PO 12/12/16 09:00 12/14/16 09:01 Hydralazine HCl (HydrALAZINE INJ) 10 mg Q4H PRN IV. 12/09/16 04:00 01/08/17 03:59 Miscellaneous (Remove Lidoderm Patch) 2 ea DAILY@2100 N/A 12/09/16 21:00 01/08/17 20:59 Objective Vital Signs Date Time Temp Pulse Resp B/P Pulse Ox O2 Delivery O2 Flow Rate FiO2 12/09/16 07:08 36.4 106 20 158/91 98 12/09/16 04:21 36.4 80 18 131/73 98 Nasal Cannula 2.0 12/09/16 03:45 77 160/83 97 Nasal Cannula 2.0 12/09/16 03:15 Nasal Cannula 2.0 12/09/16 02:53 36.6 83 16 148/94 96 12/09/16 02:28 83 16 148/94 96 Nasal Cannula 2.0 12/09/16 02:06 81 12/09/16 01:27 87 16 146/87 96 Nasal Cannula 2.0 12/09/16 00:24 84 16 159/90 100 Nasal Cannula 2.0 12/08/16 23:11 98 16 178/109 91 Room Air 12/08/16 23:02 36.6 95 22 213/139 12/08/16 22:46 94 Physical Exam General Appearance: WD/WN, + mild distress Eyes: normal inspection ENT: normal ENT inspection, hearing grossly normal Neck: supple Respiratory/Chest: chest non-tender, lungs clear, normal breath sounds, no respiratory distress, no accessory muscle use Cardiovascular: regular rate, rhythm Abdomen: soft, + pertinent finding (ilostomy bag witn stool , urostomy bag) Neurologic/Psychiatric: alert, normal mood/affect, oriented x 3 Skin: normal color Laboratory Results 12/09/16 04:45 12/09/16 04:45 Test 12/08/16 22:52 12/09/16 00:05 12/09/16 04:45 12/09/16 07:37 Immature Granulocyte % (Auto) 0.4 % White Blood Count 30.67 K/uL (4.8-10.8) Red Blood Count 4.80 M/uL (4.2-5.4) 4.50 M/uL (4.2-5.4) Hemoglobin 15.4 g/dL (12.0-16.0) Hematocrit 45.3 % (37-47) Mean Corpuscular Volume 94.4 fL (80-100) 93.1 fL (80-100) Mean Corpuscular Hemoglobin 32.1 pg (25-34) 30.9 pg (25-34) Mean Corpuscular Hemoglobin Concent 34.0 g/dl (32-36) 33.2 g/dl (32-36) Platelet Count 491 K/uL (130-400) Mean Platelet Volume 9.2 fL (7.4-10.4) 8.8 fL (7.4-10.4) Neutrophils (%) (Auto) 86.5 % Lymphocytes (%) (Auto) 3.8 % Monocytes (%) (Auto) 9.2 % Eosinophils (%) (Auto) 0.0 % Basophils (%) (Auto) 0.1 % Neutrophils # (Auto) 26.53 K/uL (1.4-6.5) Lymphocytes # (Auto) 1.17 K/uL (1.2-3.4) Monocytes # (Auto) 2.82 K/uL (0.11-0.59) Eosinophils # (Auto) 0.00 K/uL (0-0.5) Basophils # (Auto) 0.02 K/uL (0-0.2) Immature Granulocyte # (Auto) 0.13 K/uL (0.00-0.02) Toxic Vacuolation OCCASIONAL Direct Bilirubin 0.2 mg/dl (0-0.2) Troponin I < 0.015 ng/ml (0-0.045) Urine Color ORANGE Urine Appearance CLOUDY (CLEAR) Urine pH 7.5 (4.5-7.5) Urine Specific [place] 1.017 (1.000-1.030) Urine Protein 1+ (NEG) Urine Glucose (UA) NEG (NEG) Urine Ketones NEG (NEG) Urine Occult Blood NEG (NEG) Urine Nitrite NEG (NEG) Urine Bilirubin NEG (NEG) Urine Urobilinogen NEG (NEG) Urine Leukocyte Esterase SMALL (NEG) Urine WBC (Auto) /hpf (0-5) Urine RBC (Auto) /hpf (0-4) Urine Hyaline Casts (Auto) /lpf (0-5) Urine Epithelial Cells (Auto) /lpf (0-5) Urine Bacteria (Auto) (NEG) Urine RBC 0-4 /hpf (0-4) Urine WBC >30 /hpf (0-5) Urine Epithelial Cells 5-10 /lpf (0-5) Urine Triple Phosphate Crystals PRESENT (NONE PRSENT) Urine Amorphous Sediment PRESENT (NONE PRSENT) Urine Bacteria 3+ (NEG) RDW Standard Deviation 42.4 fL (36.4-46.3) RDW Coefficient of Variation 12.6 % (11.5-14.5) Prothrombin Time 10.7 SECONDS (9.0-12.0) Prothromb Time International Ratio 1.0 (0.9-1.1) Anion Gap 9.0 mmol/L (3-11) Est Creatinine Clear Calc Drug Dose 20.7 ml/min Estimated GFR () 47.4 Estimated GFR (Non- 40.9 BUN/Creatinine Ratio 29.2 (10-20) Calcium Level 9.1 mg/dl (8.5-10.1) Total Bilirubin 0.9 mg/dl (0.2-1) Aspartate Amino Transf (AST/SGOT) 19 U/L (15-37) Alanine Aminotransferase (ALT/SGPT) 32 U/L (12-78) Alkaline Phosphatase 93 U/L (45-117) Total Protein 7.0 gm/dl (6.4-8.2) Albumin 3.3 gm/dl (3.4-5.0) Globulin 3.7 gm/dl (2.5-4.0) Albumin/Globulin Ratio 0.9 (0.9-2) Lipase 229 U/L (73-393) Lactic Acid Level 3.1 mmol/L (0.4-2.0) CT SCAN OF THE ABDOMEN AND PELVIS WITHOUT CONTRAST CLINICAL HISTORY: Persistent vomiting. No bowel movements. COMPARISON STUDY: 05/20/2016 TECHNIQUE: CT scan of the abdomen and pelvis was performed from the lung bases to the proximal femurs. Images are reviewed in the axial, sagittal, and coronal planes. IV contrast was not administered for this examination. CT DOSE: 225.55 mGy.cm FINDINGS: Lower chest: The heart is normal in size and configuration, without pericardial effusion. The lung bases and pleural spaces are clear. Liver: The unenhanced liver is normal in size, contour, and attenuation. There is no intrahepatic biliary ductal dilatation. Gallbladder: Distended. No calculi visualized Spleen: Normal in size and attenuation. Pancreas: Unremarkable. Adrenal glands: There is left adrenal gland thickening. Kidneys: Is a 14 mm left renal hypodensity, statistically are presenting a cyst Bowel: There are bilateral lower quadrant ostomies. There are dilated fluid-filled small bowel loops. Distal small bowel appears to be of normal caliber. A small bowel obstruction is suspected. 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 This is present on the prior study. Evaluation of the bowel is markedly limited due to the paucity of intra-abdominal fat and the lack of intravenous and oral contrast. Peritoneum: There is no intraperitoneal free air or abdominal ascites. There is stable presacral soft tissue thickening. There is an anterior abdominal wall defect, and ventral hernia. This may be the site of the obstruction.. Vasculature: The abdominal aorta is normal in course and caliber. Adenopathy: There is a mildly enlarged 16 mm left inguinal lymph node. Pelvic viscera: Limited evaluation. Streak artifact from patient's left hip surgery. Surgically absent uterus. Skeletal structures: There is an old L1 compression fracture. There is a grade 1 spondylolisthesis of L5 and S1. The bones are osteopenic. IMPRESSION: 1. Limited study due to the lack of intravenous and oral contrast 2. Extensive postsurgical changes with bilateral lower quadrant ostomies 3. 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 Small bowel obstructive pattern, possibly secondary to the ventral hernia 5. Distended gallbladder Electronically signed by: Abrahan Woods M.D. 12/09/2016 6:37 AM Dictated Date/Time: 12/09/2016 6:27 AM [~ rep ct add3]] CHEST ONE VIEW PORTABLE CLINICAL HISTORY: Atypical chest pain COMPARISON STUDY: May 19, 2016 FINDINGS: The heart is the upper limits of normal in size. There is tortuosity/ectasia of the thoracic aorta. There is a right subclavian dual-chamber central venous pacemaker. There is no failure. There is no focal pulmonary consolidation. There are no pleural effusions.[ IMPRESSION: AP portable study. No acute findings. Assessment and Plan 86-year-old female with past medical history of hypertension, C. difficile colitis, MRSA, colon cancer status post colectomy with colostomy, GERD, pacemaker present in the ER with complaints of persistent abdominal pain, emesis and decreased ileostomy output yesterday. CT scan had revealed small bowel obstruction. Acute small bowel obstruction - Gen surgery consult- appreciate input - Diet advance to full liquids today Acute kidney injury likely sec to dehydration - Creatinine on arrival 1.4; baseline creatinine 0.9 - Cr at 1.2 today -Continue IV fluids and monitor creatinine UTI: - UA positive for small leuk esterase and 3+ bacteria, urine culture pending - Initial lactate of 3, and a repeat lactate at 3.1 - Continue with IV Rocephin Osteoarthritis - IV Tyenol PRN - Continue Lidoderm patch Hypertension - Hold metoprolol as the patient is nothing by mouth - IV hydralazine as needed DVT prophylaxis - Heparin 5000 TID - SCD to the knee Code Status - DO NOT RESUSCITATE Disposition - Med Surg Resident Physician Supervision Note: I interviewed and examined the patient. Discussed with Dr. Valverde and agree with findings and plan as documented in the note. Any exceptions or clarifications are listed here: Upon my examination this afternoon, the patient denied abdominal pain. (+) BS with liquid stool in her colostomy bag. Will keep her on a liquid diet for remainder of today; consider advancing tomorrow if continues to improve clinically. Documented By: Dameon Finnegan Resident Tracking Resident Involvement: Resident Care Provided Care Provided: Adult [facility] Medicine
[2016-12-09] MEDS ORDERED: MICONAZOLE NITRATE POWDER 43 GM EXT PRN (12:00)
[2016-12-09] MEDS ORDERED: NURSING VERBAL MED ORDER ONE (12:00)
[2016-12-10] MEDS: SODIUM CHLORIDE 0.9% 1000ML 1,000 ML IV SCH ×2 (04:08→16:42)
[2016-12-10] MEDS: ACETAMINOPHEN IV 100 ML IV PRN (05:38)
[2016-12-10] MEDS: HEPARIN SOD 5000 UNIT/0.5 ML CARP SQ SCH ×3 (05:42→21:50)
[2016-12-10] MEDS: CEFTRIAXONE SOD INJ 1 GM in DEXTROSE 5% ADD-VANTAGE 50ML 50 ML IV SCH (06:30)
[2016-12-10] MEDS: PANCREAZE (LIPASE 10,500U) CAP PO SCH ×5 (06:30→22:32)
[2016-12-10 06:31] VITALS: BP 122/73; PULSE 74; TEMP 36.8; O2SAT 95
--- NOTE | 2016-12-10 07:35 | Clinical Documentation Query ---
CLINICAL DOCUMENTATION QUERY 86 year old female who presents to the Emergency Room with complaints of nausea and vomiting found to have ventral hernia with obstruction. In your clinical opinion is this patient being managed for: ( ) SIRS of non-infectious origin with acute organ dysfunction due to SBO m/b ARF treated with multiple IV boluses and GI rest ( ) Sepsis due to UTI and SBO ( X ) Other explanation of clinical findings (Please Explain) ( X ) Unable to determine (Please Define) ( ) Need to Discuss ( ) Not Agree SBO with reactive leukocytosis. Urine culture still pending The medical record reflects the following clinical findings, treatment, and risk factors. Clinical Indicators: Moderate distress. No output of colostomy/urostomy bag, BUN 32, Creatinine 1.40, GFR 33.9, lactic acid 3.1, Leukocytosis 30.67, tachycardia 95. Treatment: IVF boluses, IV Ceftriaxone, GI rest Risk Factors: Age, dehydration, SBO, UTI Please clarify and document your clinical opinion in the progress notes and discharge summary. Terms such as "probable", "suspected", "likely", "questionable", "possible", or "still to be ruled out" are acceptable. IF IN AGREEMENT, YOU MUST DOCUMENT ABOVE DIAGNOSTIC STATEMENT IN DAILY PROGRESS NOTES AND DISCHARGE SUMMARY. This document is not part of the patient's record. Thank You, Pablo Hernandez, RN [phone]
--- NOTE | 2016-12-10 07:36 | Clinical Documentation Query ---
CLINICAL DOCUMENTATION QUERY 86 year old female who presents to the Emergency Room with complaints of nausea and vomiting found to have ventral hernia with obstruction. In your clinical opinion is this patient being managed for: ( ) SIRS of non-infectious origin with acute organ dysfunction due to SBO m/b ARF treated with multiple IV boluses and GI rest ( ) Sepsis due to UTI and SBO ( ) Other explanation of clinical findings (Please Explain) ( ) Unable to determine (Please Define) ( ) Need to Discuss ( ) Not Agree The medical record reflects the following clinical findings, treatment, and risk factors. Clinical Indicators: Moderate distress. No output of colostomy/urostomy bag, BUN 32, Creatinine 1.40, GFR 33.9, lactic acid 3.1, Leukocytosis 30.67, tachycardia 95. Treatment: IVF boluses, IV Ceftriaxone, GI rest Risk Factors: Age, dehydration, SBO, UTI Please clarify and document your clinical opinion in the progress notes and discharge summary. Terms such as "probable", "suspected", "likely", "questionable", "possible", or "still to be ruled out" are acceptable. IF IN AGREEMENT, YOU MUST DOCUMENT ABOVE DIAGNOSTIC STATEMENT IN DAILY PROGRESS NOTES AND DISCHARGE SUMMARY. This document is not part of the patient's record. Thank You, Pablo Hernandez RN [phone]
[2016-12-10 08:15] LABS: BASO % 0.2 %; BASO ABS # 0.02 K/uL (0-0.2); COMPLETE YES; EOS % 1.1 %; HEMATOCRIT 37.1 % (37-47); IG% 0.4 %; LYMPH % 5.4 %; LYMPH ABS # 0.54 K/uL (1.2-3.4); MEAN CELL VOLUME 96.6 fL (80-100); MEAN CORPUSCULAR HEMOGLOBIN 29.9 pg (25-34); MEAN PLATELET VOLUME 8.8 fL (7.4-10.4); MONO % 9.3 %; NEUT % 83.6 %; PLATELET COUNT 350 K/uL (130-400); RED BLOOD COUNT 3.84 M/uL (4.2-5.4); WHITE BLOOD COUNT 9.97 K/uL (4.8-10.8)
--- NOTE | 2016-12-10 08:40 | Surgery Progress Note ---
Surgery Progress Note Date of Service Dec 10, 2016. Subjective Post OP Day: HD # 1 + bowel movement (+output in ileostomy), + diet (full liquids), + feeling well, + flatus, No nausea, No vomiting Objective Vital Signs: Date Time Temp Pulse Resp B/P Pulse Ox O2 Delivery O2 Flow Rate FiO2 12/10/16 07:25 Room Air 12/10/16 06:31 36.8 74 18 122/73 95 Room Air 12/09/16 23:45 Room Air 12/09/16 23:21 37.0 67 20 117/74 97 Room Air 12/09/16 21:42 80 133/76 12/09/16 15:50 36.4 96 14 115/67 94 Room Air 12/09/16 15:30 Room Air General Appearance: WD/WN, no apparent distress Head: normocephalic, atraumatic Neck: trachea midline Respiratory/Chest: normal breath sounds, no respiratory distress, no accessory muscle use Cardiovascular: regular rate, rhythm Abdomen: non tender, non distended, soft, + pertinent finding (+ileostomy with liquid stool) Laboratory Results: Results Past 24 Hours Test 12/10/16 06:53 12/10/16 07:47 Range/Units Lactic Acid Level 0.8 0.4-2.0 mmol/L White Blood Count 9.97 4.8-10.8 K/uL Red Blood Count 3.84 4.2-5.4 M/uL Hemoglobin 11.5 12.0-16.0 g/dL Hematocrit 37.1 37-47 % Mean Corpuscular Volume 96.6 80-100 fL Mean Corpuscular Hemoglobin 29.9 25-34 pg Mean Corpuscular Hemoglobin Concent 31.0 32-36 g/dl Platelet Count 350 130-400 K/uL Mean Platelet Volume 8.8 7.4-10.4 fL Neutrophils (%) (Auto) 83.6 % Lymphocytes (%) (Auto) 5.4 % Monocytes (%) (Auto) 9.3 % Eosinophils (%) (Auto) 1.1 % Basophils (%) (Auto) 0.2 % Neutrophils # (Auto) 8.33 1.4-6.5 K/uL Lymphocytes # (Auto) 0.54 1.2-3.4 K/uL Monocytes # (Auto) 0.93 0.11-0.59 K/uL Eosinophils # (Auto) 0.11 0-0.5 K/uL Basophils # (Auto) 0.02 0-0.2 K/uL RDW Standard Deviation 47.7 36.4-46.3 fL RDW Coefficient of Variation 13.5 11.5-14.5 % Immature Granulocyte % (Auto) 0.4 % Immature Granulocyte # (Auto) 0.04 0.00-0.02 K/uL Assessment & Plan Partial SBO - resolving -vitals stable - Leukocytosis resolved, 9.97 today (19.55 yesterday) - Lactic acid normalized to 0.8 today, 3.1 yesterday - Passing flatus and +ileostomy output Plan: Patient's small bowel obstruction resolving, passing flatus abdomen soft and benign no surgical indication at this time advance diet as tolerated our services signing off, thank you for the consultation and involving us in the care of this patient, call with any concerns Dr. Jerry has seen and examined patient, agrees with assessment and plan.
[2016-12-10] MEDS: POLYETHYLENE (MIRALAX) 17 GM PACK PO SCH (09:17)
[2016-12-10] MEDS: SIMETHICONE 80 MG CHEW PO SCH ×3 (09:18→20:52)
[2016-12-10] MEDS: FLUTICASONE PROPIONATE NA SPR 16 GM BTL NAE SCH (09:18)
[2016-12-10] MEDS: MAGNESIUM OXIDE 400 MG TAB PO SCH ×3 (09:18→20:51)
[2016-12-10] MEDS: CYANOCOBALAMIN 500 MCG TAB (VIT B-12) PO SCH (09:18)
[2016-12-10] MEDS: VENLAFAXINE HCL XR 75 MG CAPXR PO SCH (09:19)
[2016-12-10] MEDS: HYDROXYCHLOROQUINE SULFATE 200 MG TAB PO SCH (09:19)
[2016-12-10] MEDS: POTASSIUM CHLORIDE 10 MEQ TABCR PO SCH ×3 (09:19→20:49)
[2016-12-10] MEDS: LACTASE 3000 UNIT TAB PO SCH ×3 (09:20→20:50)
[2016-12-10] MEDS: CHOLECALCIFEROL 1000 INTER.UNIT TAB PO SCH (09:20)
[2016-12-10] MEDS: METOPROLOL TARTRATE 50 MG TAB PO SCH ×2 (09:21→20:50)
[2016-12-10] MEDS: RANITIDINE HCL 150 MG TAB PO SCH ×2 (09:21→20:52)
[2016-12-10] MEDS: LIDODERM (LIDOCAINE) PATCH 5% TD SCH (09:22)
[2016-12-10 09:26] LABS: BUN/CREATININE RATIO 32.1 (10-20); CALCIUM 8.9 mg/dl (8.5-10.1); CREATININE 0.82 mg/dl (0.60-1.20); POTASSIUM 3.8 mmol/L (3.5-5.1)
--- NOTE | 2016-12-10 13:15 | Family Medicine Progress Note ---
Progress Note Date of Service Dec 10, 2016. Subjective Pt evaluation today including: conversation w/ patient, physical exam, chart review, lab review Pain: denies pain PO Intake: full liquids 86-year-old female with past medical history of hypertension, C. difficile colitis, MRSA, colon cancer status post colectomy with colostomy, GERD, pacemaker present in the ER with complaints of persistent abdominal pain, emesis and decreased ileostomy output , CT had revealed small bowel obstruction. Her diet had been advanced to full liquids yesterday which she tolerated fairly well with good ileostomy output. She appears more alert today. Complains of pain in her neck and upper back. Constitutional: No chills, No fever ENT: No hearing loss Respiratory: No cough, No shortness of breath, No wheezing Cardiovascular: No chest pain Abdomen: No nausea, No pain, No vomiting Musculoskeletal: + joint pain (neck and upper back) Neurologic: No paralysis Psychiatric: No depression symptoms Medications Current Inpatient Medications Medications (Trade) Dose Ordered Sig/Gonzalo Route Start Time Stop Time Status Last Admin Dose Admin Heparin Sodium (Porcine) (Heparin Sq 5000 Unit/0.5ml) 5,000 unit Q8H SQ 12/09/16 06:00 01/08/17 05:59 12/10/16 13:40 5,000 UNIT Acetaminophen (Tylenol Tab) 650 mg Q4H PRN PO 12/09/16 02:30 01/08/17 02:29 Al Hydrox/Mg Hydrox/Simethicone (Maalox Max Susp) 15 ml Q4H PRN PO 12/09/16 02:30 01/08/17 02:29 Magnesium Hydroxide (Milk Of Magnesia Susp) 30 ml Q6H PRN PO 12/09/16 02:30 01/08/17 02:29 Polyethylene (Miralax Powder Packet) 17 gm DAILY PRN PO 12/09/16 02:30 01/08/17 02:29 Ondansetron HCl 4 mg 4 mg Q6H PRN IV 12/09/16 02:30 01/08/17 02:29 12/09/16 03:37 4 MG Sodium Chloride (Nss 1000ml) 1,000 ml @ 80 mls/hr [id number] IV 12/09/16 03:30 01/08/17 03:29 12/10/16 04:08 80 MLS/HR Fluticasone Propionate (Flonase Nasal [place]) 2 sprays QAM ARI 12/09/16 09:00 01/08/17 08:59 12/10/16 09:18 2 SPRAYS Hydroxychloroquine Sulfate (Plaquenil Tab) 200 mg DAILY PO 12/09/16 09:00 01/08/17 08:59 12/10/16 09:19 200 MG Lactase (Lactaid Tab) 3,000 units TID PO 12/09/16 09:00 01/08/17 08:59 12/10/16 13:34 3,000 UNITS Lidocaine (Lidoderm Patch 5%) 2 patch DAILY TD 12/09/16 09:00 01/08/17 08:59 12/10/16 09:22 2 PATCH Magnesium Oxide (Mag-Ox Tab) 400 mg TID PO 12/09/16 09:00 01/08/17 08:59 12/10/16 13:34 400 MG Metoprolol Tartrate (Lopressor Tab) 50 mg Q12 PO 12/09/16 09:00 01/08/17 08:59 12/10/16 09:21 50 MG Ondansetron HCl (Zofran Tab) 4 mg Q4H PRN PO 12/09/16 02:45 01/08/17 02:44 Polyethylene (Miralax Powder Packet) 8.5 gm DAILY PO 12/09/16 09:00 01/08/17 08:59 12/10/16 09:17 8.5 GM Prednisone (PredniSONE TAB) 20 mg DAILY PO 12/09/16 09:00 12/11/16 09:01 12/10/16 09:19 20 MG Ranitidine HCl (zANTac TAB) 150 mg BID PO 12/09/16 09:00 01/08/17 08:59 12/10/16 09:21 150 MG Simethicone (Mylicon Chew Tab) 80 mg TID PO 12/09/16 09:00 01/08/17 08:59 12/10/16 13:33 80 MG Tramadol HCl (Ultram Tab) 50 mg Q4H PRN PO 12/09/16 02:45 01/08/17 02:44 Venlafaxine HCl (effeXOR EXTENDED REL CAP) 75 mg DAILY PO 12/09/16 09:00 01/08/17 08:59 12/10/16 09:19 75 MG Cholecalciferol (Vitamin D Tab) 2,000 inter.unit DAILY PO 12/09/16 09:00 01/08/17 08:59 12/10/16 09:20 2,000 INTER.UNIT Cyanocobalamin (Vitamin B-12 Tab) 1,000 mcg DAILY PO 12/09/16 09:00 01/08/17 08:59 12/10/16 09:18 1,000 MCG Miscellaneous Information (Order Awaiting Action) 1 ea QS N/A 12/09/16 08:00 01/08/17 07:59 Amylase/Lipase/ Protease (Pancreaze (Lipase 10,500U) Cap) 2 cap 5XDQ4H PO 12/09/16 07:00 01/08/17 06:59 12/10/16 10:52 2 CAP Artificial Tears (Artificial Tears) 1 drops QID PRN OPB 12/09/16 02:45 01/08/17 02:44 Potassium Chloride 10 meq 10 meq TID PO 12/09/16 09:00 01/08/17 08:59 12/10/16 13:35 10 MEQ Acetaminophen 100 ml @ 400 mls/hr Q8H PRN IV 12/09/16 03:00 01/08/17 02:59 12/10/16 05:38 400 MLS/HR Ceftriaxone Sodium/Dextrose (Rocephin Inj/ Dextrose Add-[place] 50ML) 50 ml @ 100 mls/hr Q24H IV 12/09/16 07:00 12/19/16 06:59 12/10/16 06:30 100 MLS/HR Prednisone (PredniSONE TAB) 10 mg DAILY PO 12/12/16 09:00 12/14/16 09:01 Hydralazine HCl (HydrALAZINE INJ) 10 mg Q4H PRN IV. 12/09/16 04:00 01/08/17 03:59 Miscellaneous (Remove Lidoderm Patch) 2 ea DAILY@2100 N/A 12/09/16 21:00 01/08/17 20:59 12/09/16 21:00 2 EA Miconazole Nitrate (Desenex Powder) 1 appln PRN PRN EXT 12/09/16 12:00 01/08/17 11:59 12/09/16 13:26 1 APPLN Objective Vital Signs Date Time Temp Pulse Resp B/P Pulse Ox O2 Delivery O2 Flow Rate FiO2 12/10/16 07:25 Room Air 12/10/16 06:31 36.8 74 18 122/73 95 Room Air 12/09/16 23:45 Room Air 12/09/16 23:21 37.0 67 20 117/74 97 Room Air 12/09/16 21:42 80 133/76 12/09/16 15:50 36.4 96 14 115/67 94 Room Air 12/09/16 15:30 Room Air Physical Exam General Appearance: WD/WN, no apparent distress Eyes: normal inspection Neck: supple Respiratory/Chest: chest non-tender, lungs clear, normal breath sounds, no accessory muscle use Cardiovascular: regular rate, rhythm Abdomen: non tender, soft, + pertinent finding (ileostomy with good fecal output and urostomy ) Extremities: normal range of motion, non-tender Neurologic/Psychiatric: alert, normal mood/affect Skin: normal color Laboratory Results 12/10/16 07:47 Red Blood Count 3.84, Mean Corpuscular Volume 96.6, Mean Corpuscular Hemoglobin 29.9, Mean Corpuscular Hemoglobin Concent 31.0, Mean Platelet Volume 8.8, Neutrophils (%) (Auto) 83.6, Lymphocytes (%) (Auto) 5.4, Monocytes (%) (Auto) 9.3, Eosinophils (%) (Auto) 1.1, Basophils (%) (Auto) 0.2, Neutrophils # (Auto) 8.33, Lymphocytes # (Auto) 0.54, Monocytes # (Auto) 0.93, Eosinophils # (Auto) 0.11, Basophils # (Auto) 0.02 12/10/16 07:47 Test 12/10/16 06:53 12/10/16 07:47 Lactic Acid Level 0.8 mmol/L (0.4-2.0) White Blood Count 9.97 K/uL (4.8-10.8) Red Blood Count 3.84 M/uL (4.2-5.4) Hemoglobin 11.5 g/dL (12.0-16.0) Hematocrit 37.1 % (37-47) Mean Corpuscular Volume 96.6 fL (80-100) Mean Corpuscular Hemoglobin 29.9 pg (25-34) Mean Corpuscular Hemoglobin Concent 31.0 g/dl (32-36) Platelet Count 350 K/uL (130-400) Mean Platelet Volume 8.8 fL (7.4-10.4) Neutrophils (%) (Auto) 83.6 % Lymphocytes (%) (Auto) 5.4 % Monocytes (%) (Auto) 9.3 % Eosinophils (%) (Auto) 1.1 % Basophils (%) (Auto) 0.2 % Neutrophils # (Auto) 8.33 K/uL (1.4-6.5) Lymphocytes # (Auto) 0.54 K/uL (1.2-3.4) Monocytes # (Auto) 0.93 K/uL (0.11-0.59) Eosinophils # (Auto) 0.11 K/uL (0-0.5) Basophils # (Auto) 0.02 K/uL (0-0.2) RDW Standard Deviation 47.7 fL (36.4-46.3) RDW Coefficient of Variation 13.5 % (11.5-14.5) Immature Granulocyte % (Auto) 0.4 % Immature Granulocyte # (Auto) 0.04 K/uL (0.00-0.02) Anion Gap 5.0 mmol/L (3-11) Est Creatinine Clear Calc Drug Dose 30.3 ml/min Estimated GFR () 75.1 Estimated GFR (Non- 64.8 BUN/Creatinine Ratio 32.1 (10-20) Calcium Level 8.9 mg/dl (8.5-10.1) Assessment and Plan 86-year-old female with past medical history of hypertension, C. difficile colitis, MRSA, colon cancer status post colectomy with colostomy, GERD, pacemaker present in the ER with complaints of persistent abdominal pain, emesis and decreased ileostomy output yesterday. CT had revealed a small bowel obstruction managed conservatively Acute small bowel obstruction: Resolved - Good output in ileostomy bag - Diet advanced - Gen surgery consult- appreciate input Acute kidney injury likely sec to dehydration-resolved - Creatinine on arrival 1.4; baseline creatinine 0.9 - Cr at 0.8 today -Continue IV fluids and monitor creatinine UTI: - UA positive for small leuk esterase and 3+ bacteria, urine culture pending - Initial lactate of 3, lactate today at 0.8 -Urine culture suggestive of contamination - Continue with IV Rocephin Osteoarthritis/ neck and back pain - C-spine and thoracic spine x-rays ordered - IV Tyenol PRN - Continue Lidoderm patch Hypertension Continue metoprolol DVT prophylaxis - Heparin 5000 TID - SCD to the knee Code Status - DO NOT RESUSCITATE Disposition - Med Surg Resident Physician Supervision Note: I was present with Dr. Valverde during the history and exam. I discussed the case with the resident and agree with the findings and plan as documented in the note. Any exceptions or clarifications are listed here: She is tolerating a PO diet and has had normal colostomy output. She complains of neck pain today, although she had no midline tenderness with palpation. Given her age and recent fall, recommend plain films of the c-spine and t-spine to R/O occult injury/ compression fracture. Documented By: Dameon Finnegan Resident Tracking Resident Involvement: Resident Care Provided Care Provided: Adult Hospital Medicine
--- NOTE | 2016-12-10 15:27 | DIAGNOSTIC IMAGING REPORT ---
CERVICAL SPINE 2 OR 3 VIEWS CLINICAL HISTORY: Neck and back pain COMPARISON STUDY: 06/23/2015 FINDINGS: The prevertebral soft tissues are normal. There is a mild levoscoliosis. There are multilevel degenerative changes. No fractures or subluxations are visualized. IMPRESSION: Mild degenerative change. No fractures or traumatic subluxations are visualized. Electronically signed by: Abrahan Woods M.D. 12/10/2016 3:25 PM Dictated Date/Time: 12/10/2016 3:24 PM
--- NOTE | 2016-12-10 16:01 | DIAGNOSTIC IMAGING REPORT ---
THORACIC SPINE 3 VIEWS CLINICAL HISTORY: Thoracic back pain. FINDINGS: AP, lateral, and swimmer's views of the thoracic spine are correlated with chest CT dated 03/18/2011. The skeletal structures are osteopenic. There is no radiographic evidence of fracture or malalignment. There is moderate S-shaped thoracolumbar scoliosis. There are chronic compression deformities of T2, T3, T4, and L1. These were also seen by chest CT in 2010. Vertebral body height is otherwise maintained throughout the thoracic spine. Alignment appears preserved. Anterior osteophytes are seen throughout. The transverse processes and pedicles are grossly intact on the frontal view. Multilevel degenerative disc space narrowing is observed. The imaged lung parenchyma appears clear. The heart is enlarged and there is advanced atherosclerotic calcification of the thoracic aorta. A cardiac pacemaker is noted. The mitral annulus is densely calcified. IMPRESSION: 1. No acute bony abnormality is seen involving the thoracic spine. 2. Osteopenia with thoracic spondylosis and scoliosis as above. 3. Chronic compression deformities as above. Dictated: 12/10/2016 3:25 PM Transcribed: 12/10/2016 4:00 PM EVELIA_Shana Electronically signed by: Dallas Vaca M.D. 12/10/2016 4:21 PM Dictated Date/Time: 12/10/2016 3:25 PM
[2016-12-10 16:15] VITALS: BP 123/73; PULSE 80; TEMP 36.6; O2SAT 95
[2016-12-10] MEDS: ACETAMINOPHEN 325 MG TAB PO PRN (22:32)
[2016-12-10 23:25] VITALS: BP 155/74; PULSE 70; TEMP 36.7; O2SAT 97
[2016-12-11] MEDS: SODIUM CHLORIDE 0.9% 1000ML 1,000 ML IV SCH (05:39)
[2016-12-11] MEDS: HEPARIN SOD 5000 UNIT/0.5 ML CARP SQ SCH ×2 (05:43→13:58)
[2016-12-11] MEDS: PANCREAZE (LIPASE 10,500U) CAP PO SCH ×2 (06:14→11:17)
[2016-12-11] MEDS: CEFTRIAXONE SOD INJ 1 GM in DEXTROSE 5% ADD-VANTAGE 50ML 50 ML IV SCH (06:14)
[2016-12-11 07:28] VITALS: BP 168/84; PULSE 70; TEMP 36.5; O2SAT 97
[2016-12-11 08:29] LABS: HEMATOCRIT 34.4 % (37-47); MEAN CELL VOLUME 95.6 fL (80-100); MEAN CORPUSCULAR HEMOGLOBIN 30.6 pg (25-34); MEAN PLATELET VOLUME 8.4 fL (7.4-10.4); PLATELET COUNT 340 K/uL (130-400); WHITE BLOOD COUNT 7.69 K/uL (4.8-10.8)
[2016-12-11] MEDS: POLYETHYLENE (MIRALAX) 17 GM PACK PO SCH (09:00)
[2016-12-11] MEDS: FLUTICASONE PROPIONATE NA SPR 16 GM BTL NAE SCH (09:00)
[2016-12-11 09:04] LABS: BUN/CREATININE RATIO 21.6 (10-20); CREATININE 0.86 mg/dl (0.60-1.20); POTASSIUM 3.8 mmol/L (3.5-5.1)
[2016-12-11 09:08] LABS: CALCIUM 9.2 mg/dl (8.5-10.1)
[2016-12-11] MEDS: LACTASE 3000 UNIT TAB PO SCH ×2 (09:36→13:59)
[2016-12-11] MEDS: RANITIDINE HCL 150 MG TAB PO SCH (09:36)
[2016-12-11] MEDS: VENLAFAXINE HCL XR 75 MG CAPXR PO SCH (09:36)
[2016-12-11] MEDS: SIMETHICONE 80 MG CHEW PO SCH ×2 (09:36→13:59)
[2016-12-11] MEDS: METOPROLOL TARTRATE 50 MG TAB PO SCH (09:36)
[2016-12-11] MEDS: POTASSIUM CHLORIDE 10 MEQ TABCR PO SCH ×2 (09:36→13:59)
[2016-12-11] MEDS: MAGNESIUM OXIDE 400 MG TAB PO SCH ×2 (09:36→13:59)
[2016-12-11] MEDS: HYDROXYCHLOROQUINE SULFATE 200 MG TAB PO SCH (09:37)
[2016-12-11] MEDS: CHOLECALCIFEROL 1000 INTER.UNIT TAB PO SCH (09:37)
[2016-12-11] MEDS: CYANOCOBALAMIN 500 MCG TAB (VIT B-12) PO SCH (09:39)
[2016-12-11] MEDS: LIDODERM (LIDOCAINE) PATCH 5% TD SCH (09:39)
[2016-12-11 09:53] VITALS: BP 143/80
--- NOTE | 2016-12-11 13:28 | Discharge Summary ---
Discharge Summary Date of Service Dec 11, 2016. (Agata Valverde MD) Discharge Summary Admission Date: Dec 09, 2016 at 02:27 Discharge Date: Dec 11, 2016 Discharge Disposition: snf facility Principal Diagnosis: SBO Immunizations: Have You Had Influenza Vaccine: No Influenza Vaccine Date: Jun 03, 2010 History of Tetanus Vaccine?: Unknown History of Pneumococcal: No Pneumococcal Date: Aug 27, 2009 History of Hepatitis B Vaccine: Unknown Consultations: General Surgery (Agata Valverde MD) Medication Reconciliation Continued Medications: Acetaminophen (Tylenol) 325 Mg Tab 650 MG PO TID MAX 3GM/24HR Glhcj-A-Vpakrzotkzeeg (Beano) 1 Tab Tab 2 TABS PO QID/UD WITH MEALS OR SNACKS. Cholecalciferol (Vitamin D-3) 2,000 Unit Tab 2000 UNIT PO DAILY Cyanocobalamin (Vitamin B12) 1,000 Mcg Tab 1000 MCG PO DAILY Fluticasone Propionate (Nasal) (Flonase Allergy Relief) 50 Mcg/Act Spr 2 SPRAYS ARI QAM Hydroxychloroquine Sulfate (Plaquenil) 200 Mg Tab 200 MG PO DAILY Ibandronate Sodium (Boniva) 150 Mg Tab 150 MG PO MONTHLY Lactase (Lac-Dose) 3,000 Unit Tab 3000 UNIT PO TID Lidocaine (Lidoderm Patch 5%) 1 Ea Tdsy 2 PATCH TOP DAILY APPLY TO LOWER BACK AND LT LEG TOPICALLY ONE TIME A DAY FOR SEVERE PAIN. APPLY TWO PATCHES TOPICALLY, ONE AT LOWER BACK AND ONE AT LT LEG ON AM - OFF IN PM Magnesium Hydroxide (Milk of Magnesia) 30 Ml Susp 30 ML PO UD Magnesium Oxide (Mag-Ox) 400 Mg Tab 400 MG PO TID, TAB Metoprolol Tartrate (Lopressor) 50 Mg Tab 50 MG PO Q12, #60 2 Refills Ondansetron Hcl (Zofran) 4 Mg Tab 4 MG PO Q4H PRN for Nausea or Vomiting, TAB Pancrelipase (Lipase-Protease- (Creon) 1 Cap Cap 52330 UNITS PO 5XD TAKES WITH MEALS AND 2 SNACKS Polyethylene Glycol 3350 (Miralax) 1 Pow Pow 8.5 GM PO DAILY Polyvinyl Alcohol (Artificial Tears) 1.4 % Fatoumata 1 DROP OPB QID PRN for PRN Potassium Chloride (Potassium Chloride Er) 10 Meq Tab 1 TAB PO TID for 90 Days, #270 TAB 3 Refills Prednisone Tab (Prednisone) 10 Mg Tab 10 MG PO UD give 30mg for 3 days start 12/06/16 give 20mg for 3 days start 12/09/16 give 10mg for 3 days start 12/12/16 Ranitidine (Zantac) 150 Mg Tab 150 MG PO BID, TAB Simethicone (Ra Gas Relief) 80 Mg Chw 1 TAB PO TID Tramadol (Ultram) 50 Mg Tab 50 MG PO Q4H PRN for Pain, TAB Venlafaxine Hcl (Venlafaxine Hcl Er) 75 Mg Tab 75 MG PO DAILY Discharge Exam Has tolerated regular diet with no complications. denies abdominal pain, nausea , vomiting Review of Systems: Constitutional: No chills, No fever Eyes: No worsening of vision ENT: No hearing loss Respiratory: No cough, No shortness of breath, No sputum Cardiovascular: No chest pain Abdomen: No nausea, No pain, No vomiting Musculoskeletal: + joint pain (neck and upper back which appear to be chronic) Physical Exam: General Appearance: WD/WN, no apparent distress Eyes: normal inspection ENT: normal ENT inspection, hearing grossly normal Neck: supple Respiratory/Chest: chest non-tender, lungs clear, normal breath sounds, no respiratory distress, no accessory muscle use Cardiovascular: regular rate, rhythm, no edema Abdomen / GI: normal bowel sounds, non tender, soft, + pertinent finding ( Ileostomy with good output. Urostomy) Extremities: no pedal edema Neurologic/Psychiatric: alert, normal mood/affect Skin: normal color (Agata Valverde MD) Hospital Course Patient presents to the ED after experiencing nausea and vomiting this afternoon while taking a walk. The cognitive vomitus was apparently bloody. It was also noted that she had reduce ileostomy output in the past 24 hours. She notes that she has not had any changes in her urostomy output. She presented to emergency department for possible small bowel obstruction, which was ultimately confirmed by abdominal CT scan. Dr. Jerry from surgery had evaluated the patient, and it appears that the obstruction may have spontaneous cleared down in the ED. Ileostomy output has picked up again. She is noted to have a history of extensive of bowel surgeries related to colon cancer. As a sequela of this, she also has had previous episodes of small bowel obstruction. At this time she states that her abdominal discomfort is relatively unchanged from arrival, but states that she is tired more than anything else. States that in some discomfort in both her right and left lower quadrants, she cannot describe the type of pain or severity. She states at this time that her nausea is much improved, and she is not vomited. In regards other systems, she denies fevers chills, night sweats. She denies chest pain, shortness of breath, wheezing, palpitations, lightheadedness or dizziness, syncope, lower extremity edema. She does state in general that in the past 1 month she feels that she has had a generalized decline, and in light of this wanted to treat her obstruction and initially in a conservative manner in discussion with Dr. Jerry and her regular surgeon in [place]. Acute small bowel obstruction: - Good output in ileostomy bag - Diet advanced and patient tolerated Regular diet - Gen surgery consult- appreciate input UTI: - UA positive for small leuk esterase and 3+ bacteria, urine culture pending - Initial lactate of 3, lactate today at 0.8 and was treated with IV Rocephin, -Urine culture suggestive of contamination - Osteoarthritis/ neck and back pain - C-spine and thoracic spine x-rays ordered - IV Tyenol PRN - Continue Lidoderm patch Hypertension Continue metoprolol Follow-up with PCP in 2-3 days with Total Time Spent: Greater than 30 minutes This includes examination of the patient, discharge planning, medication reconciliation, and communication with other providers. (Agata Valverde MD) Resident Physician Supervision Note: I was present with Dr. Valverde during the history and exam. I discussed the case with the resident and agree with the findings and plan as documented in the note. Any exceptions or clarifications are listed here: Documented By: Dameon Finnegan (Dameon Finnegan,D.O.) Discharge Instructions Please refer to the electronic Patient Visit Report (Discharge Instructions) for additional information. (Agata Valverde MD) Follow-Up With PCP in 2-3 days (Agata Valverde MD) Additional Copies To Yoni Donaldson M.D. Resident Tracking Resident Involvement: Resident Care Provided Care Provided: Adult [facility] (Agata Valverde MD)
--- NOTE | 2016-12-11 13:34 | Discharge Instructions ---
Discharge Instructions Date of Service Dec 11, 2016. Admission Reason for Admission: SBO Discharge Discharge Diagnosis / Problem: small bowel obstruction Discharge Goals Goal(s): Decrease discomfort, Improve function Activity Recommendations Activity Limitations: resume your previous activity . Instructions / Follow-Up Instructions / Follow-Up Admitted for symptoms concerning of a small bowel obstruction. Did not require surgical exploration and has been managed conservatively. Recommendations: No changes have been made to home medications- continue as scheduled. If patient develops symptoms suggestive of small bowel obstruction please return to the ER. Current Hospital Diet Patient's current hospital diet: Regular Diet Discharge Diet Recommended Diet: Regular Diet Pending Studies Studies pending at discharge: no Laboratory Results Lipid Panel Test 09/23/16 06:05 Range/Units Triglycerides Level 120 0-150 mg/dl Cholesterol Level 116 0-200 mg/dl HDL Cholesterol 53 mg/dl Cholesterol/HDL Ratio 2.2 LDL Cholesterol, Calculated 39 mg/dl Medical Emergencies . Who to Call and When: Medical Emergencies: If at any time you feel your situation is an emergency, please call 911 immediately. . Non-Emergent Contact Non-Emergency issues call your: Primary Care Provider . . "Provider Documentation" section prepared by Agata Valverde. . VTE Core Measure Inpt VTE Proph given/why not?: Unfractionated heparin SQ
[2016-12-11 13:47] VITALS: BP 143/80; PULSE 70; TEMP 36.5; O2SAT 97
[2016-12-11] MEDS: ACETAMINOPHEN 325 MG TAB PO PRN (14:05)
--- NOTE | 2017-01-02 14:15 | Surgery Consultation ---
Consultation Date of Consultation: December 09, 2016. Attending Physician: Dameon Finnegan D.O. History of Present Illness patient, family he patient is an 86 year old female who presents to the Emergency Room with complaints of nausea and vomiting that began at 1630, six hours prior to arrival. The patient lives in [facility] and called for emergency medical services due to nausea while taking a walk at 1630 today. Per EMS the patient did vomit shortly after onset, and vomited blood upon their arrival to the scene. She was also very diaphoretic. The patient has not had any output into her colostomy bag today and has had no urine production. She is currently complaining of nausea and abdominal pain. She denies headache, change in vision, fevers, shortness of breath, diarrhea, pain with urination, and melena. pt had CT scan done,- report- SBO on ventral hernia, pt had 2 times bowel obstruction surgery and colon cancer surgery at [facility], now pt denies abdominal pain, no nausea, no vomiting, colostomy bag with stool, Past Medical/Surgical History Medical Problems: (1) Back pain Status: Acute (2) Diffuse abdominal pain Status: Acute (3) Leukocytosis Status: Acute (4) Radiating chest pain Status: Acute (5) SBO (small bowel obstruction) Status: Acute (6) Small bowel obstruction Status: Acute (7) UTI (urinary tract infection) Status: Acute Family History Heart disease Social History Smoking Status: Never Smoker Smokeless Tobacco Use: No Alcohol Use: none Drug Use: none Marital Status: Housing Status: assisted living Occupation Status: retired Allergies Coded Allergies: Sulfamethoxazole w/Trimethoprim (Verified Allergy, Unknown, HIVES, 12/23/16) Lorazepam (Verified Adverse Reaction, Severe, DELIRIUM, 12/23/16) WORSENING of agitation and delirium. Morphine (Verified Adverse Reaction, Mild, CONFUSION, EXTREME AGITATION, ) Haloperidol (Verified Adverse Reaction, Unknown, OVERSEDATION IN THE PAST , 12/23/16) Listed on [facility]. Uncoded Allergies: BENGAY (Adverse Reaction, Intermediate, RASH, 11/19/16) Home Medications Scheduled Acetaminophen (Tylenol), 650 MG PO TID Hsynn-G-Ebpxihcjjulmd (Beano), 2 TABS PO QID/UD Bismuth Tribromophenate-Petrol (Xeroform Petrolatum Dress), 1 APPLN TD DAILY Cholecalciferol (Vitamin D-3), 2,000 UNIT PO DAILY Cyanocobalamin (Vitamin B12), 1,000 MCG PO DAILY Fluticasone Propionate (Nasal) (Flonase Allergy Relief), 2 SPRAYS ARI QAM Hydroxychloroquine Sulfate (Plaquenil), 200 MG PO DAILY Ibandronate Sodium (Boniva), 150 MG PO MONTHLY Lactase (Lac-Dose), 3,000 UNIT PO TID Magnesium Oxide (Mag-Ox), 400 MG PO TID Metoprolol Tartrate (Lopressor), 50 MG PO Q12 Nutritional Supplements (Boost Breeze), 8 OZ PO TID Pancrelipase (Lipase-Protease- (Creon), 24,000 UNITS PO 5XD Polyethylene Glycol 3350 (Miralax), 8.5 GM PO DAILY Potassium Chloride (Potassium Chloride Er), 1 TAB PO TID Ranitidine (Zantac), 150 MG PO BID Simethicone (Ra Gas Relief), 1 TAB PO TID Venlafaxine Hcl (Venlafaxine Hcl Er), 75 MG PO DAILY Scheduled PRN Ondansetron Hcl (Zofran), 4 MG PO Q4H PRN for Nausea or Vomiting Polyvinyl Alcohol (Artificial Tears), 1 DROP OPB QID PRN for PRN Tramadol (Ultram), 50 MG PO Q4H PRN for Pain Review of Systems Constitutional: No chills, No fatigue, No fever, No problem reported, No sweats , No weakness, No weight loss Eyes: No diplopia, No discharge, No eye pain, No problem reported, No redness, No worsening of vision ENT: No dental problems, No hearing loss, No nasal symptoms, No problem reported, No sore throat, No tinnitus, No trouble swallowing, No unusual epistaxis Respiratory: No cough, No dyspnea at rest, No dyspnea on exertion, No hemoptysis, No problem reported, No shortness of breath, No sputum, No wheezing Cardiovascular: No PND, No chest pain, No claudication, No edema, No orthopnea , No palpitations, No problem reported Abdomen: No GI bleeding, No constipation, No diarrhea, No nausea, No pain, No problem reported, No vomiting Neurologic: No balance problems, No memory loss, No numbness/tingling, No paralysis, No problem reported, No vertigo, No weakness Psychiatric: No anhedonism, No anxiety, No depression symptoms, No insomnia, No problem reported, No substance abuse Endocrine: No excessive thirst, No excessive urination, No fatigue, No problem reported Physical Exam General Appearance: WD/WN Head: normocephalic Eyes: normal inspection ENT: normal ENT inspection Neck: supple, no JVD Respiratory/Chest: chest non-tender, lungs clear Cardiovascular: regular rate, rhythm, no edema, no JVD Abdomen/GI: normal bowel sounds, non tender, soft, no organomegaly Extremities/Musculoskelatal: normal inspection Neurologic/Psych: alert, normal mood/affect Skin: normal color, warm/dry Laboratory Results CT scan- possible SBO on ventral hernia, Assessment & Plan IMP-m SBO, at ventral hernia base on pt had multiple surgery at [facility], I recommend to tranfer pt to higher level care to [facility]. for further DX and treatment, D/W ER attending,
== END 2016-12-11 15:08 | DRG 394 ==
LOC: ENRESERVDT → ENRESERVTM → EDBD 22:34 → C.EDA 22:36 → C.MSN 12-09 02:27 → EDBEDREQ 12-09 02:32
PROVIDERS: ADMIT Student in an Organized Health Care Education/Training Program; ATTEND Family Medicine
DX: K43.6 Other and unspecified ventral hernia with obstruction, without gangrene (principal); N17.9 Acute kidney failure, unspecified; N39.0 Urinary tract infection, site not specified; K21.9 Gastro-esophageal reflux disease without esophagitis; I10 Essential (primary) hypertension; M43.17 Spondylolisthesis, lumbosacral region; Z66 Do not resuscitate; Z93.3 Colostomy status; Z86.14 Personal history of Methicillin resistant Staphylococcus aureus infection; Z95.0 Presence of cardiac pacemaker; M19.90 Unspecified osteoarthritis, unspecified site; Z85.038 Personal history of other malignant neoplasm of large intestine; M85.80 Other specified disorders of bone density and structure, unspecified site; E86.0 Dehydration

== ENCOUNTER → 2016-12-16 | Outpatient (CLI) | payer OTHER ==
[~2016-12-16] MED LIST changes: -CEPH500C PO; +LEVO1TAB34 PO; +NUTR-1197 PO; +NYSCR15 TOP; -OXYC1TAB3 PO; +PRED10TA PO; +WOUN1PAD TD; -[UNRECOGNIZED DRUG - CODE]; -etodolac PO
[2016-12-16 09:24] LABS: HEMATOCRIT 34.6 % (37-47); MEAN CELL VOLUME 96.9 fL (80-100); MEAN CORPUSCULAR HEMOGLOBIN 31.9 pg (25-34); MEAN CORPUSCULAR HGB CONC 32.9 g/dl (32-36); MEAN PLATELET VOLUME 9.1 fL (7.4-10.4); PLATELET COUNT 320 K/uL (130-400); RED BLOOD COUNT 3.57 M/uL (4.2-5.4); WHITE BLOOD COUNT 8.01 K/uL (4.8-10.8)
[2016-12-16 09:31] LABS: BLOOD UREA NITROGEN 25 mg/dl (7-18); BUN/CREATININE RATIO 28.6 (10-20); CARBON DIOXIDE 23 mmol/L (21-32); CHLORIDE 106 mmol/L (98-107); CREATININE 0.87 mg/dl (0.60-1.20); GLUCOSE 76 mg/dl (70-99); POTASSIUM 3.9 mmol/L (3.5-5.1); SODIUM 139 mmol/L (136-145)
[2016-12-16 09:38] LABS: CALCIUM 9.5 mg/dl (8.5-10.1)
== END ==
LOC: C.LABFOXAE 08:55 → EDSTATUS 12-18 09:37
PROVIDERS: ATTEND Internal Medicine
DX: D72.9 Disorder of white blood cells, unspecified (principal)

== ENCOUNTER 2016-12-23 03:30 | Emergency (ER) | payer OTHER ==
[~2016-12-23] VITALS: Ht 157.5 cm; Wt 49.0 kg
[~2016-12-23 03:30] MED LIST changes: -LEVO1TAB34 PO; -NUTR-1197 PO; -NYSCR15 TOP; -WOUN1PAD TD
[2016-12-23 03:32] VITALS: TEMP 37; Ht 157.5 cm; Wt 49.0 kg
--- NOTE | 2016-12-23 03:53 | EMERGENCY ROOM VISIT NOTE ---
History Report prepared by Cristina: Eric Haywood Under the Supervision of: Dr. Ayse Bourne D.O. First contact with patient: 03:35 Chief Complaint: OTHER COMPLAINT Stated Complaint: SINUS PRESSURE/DRAINAGE History of Present Illness The patient is an 86 year old female who presents to the Emergency Room with complaints of persistent chest pain that started at approximately 0300 this morning. The patient came to the ED from [facility]. Their records indicate that the patient complained of sharp, heavy chest pain. She was also complaining of bilateral head and neck pain as well as teeth pain. She was given Tramadol. The patient currently denies shortness of breath or abdominal pain. History is limited secondary to dementia. Source of History: patient, [facility] notes History Limited By: dementia Onset: 0300 this morning Position: chest Quality: sharp (and heavy) Timing: other (persistent) Associated Symptoms: + headache, + neck pain, No SOB, No abdominal pain Review of Systems ROS is limited secondary to dementia. Past Medical & Surgical Medical Problems: (1) Carcinoma of colon (2) Closed fracture of sternum (3) Dehydration (4) Diarrhea (5) Essential hypertension (6) Gastroenteritis (7) Gastroesophageal reflux disease (8) History of Clostridium difficile (9) MRSA (methicillin resistant Staphylococcus aureus) (10) Pacemaker (11) Total colectomy Surgical Problems: (1) S/P colostomy (2) S/P ureterostomy Family History Heart disease Social History Smoking Status: Never Smoker Alcohol Use: none Drug Use: none Marital Status: Housing Status: assisted living Occupation Status: retired Current/Historical Medications Scheduled Acetaminophen (Tylenol), 650 MG PO TID Uctar-V-Cowoabxfuddle (Beano), 2 TABS PO QID/UD Bismuth Tribromophenate-Petrol (Xeroform Petrolatum Dress), 1 APPLN TD DAILY Cholecalciferol (Vitamin D-3), 2,000 UNIT PO DAILY Cyanocobalamin (Vitamin B12), 1,000 MCG PO DAILY Fluticasone Propionate (Nasal) (Flonase Allergy Relief), 2 SPRAYS ARI QAM Hydroxychloroquine Sulfate (Plaquenil), 200 MG PO DAILY Ibandronate Sodium (Boniva), 150 MG PO MONTHLY Lactase (Lac-Dose), 3,000 UNIT PO TID Magnesium Oxide (Mag-Ox), 400 MG PO TID Metoprolol Tartrate (Lopressor), 50 MG PO Q12 Nutritional Supplements (Boost Breeze), 8 OZ PO TID Pancrelipase (Lipase-Protease- (Creon), 24,000 UNITS PO 5XD Polyethylene Glycol 3350 (Miralax), 8.5 GM PO DAILY Potassium Chloride (Potassium Chloride Er), 1 TAB PO TID Ranitidine (Zantac), 150 MG PO BID Simethicone (Ra Gas Relief), 1 TAB PO TID Venlafaxine Hcl (Venlafaxine Hcl Er), 75 MG PO DAILY Scheduled PRN Ondansetron Hcl (Zofran), 4 MG PO Q4H PRN for Nausea or Vomiting Polyvinyl Alcohol (Artificial Tears), 1 DROP OPB QID PRN for PRN Tramadol (Ultram), 50 MG PO Q4H PRN for Pain Allergies Coded Allergies: Sulfamethoxazole w/Trimethoprim (Verified Allergy, Unknown, HIVES, 12/23/16) Lorazepam (Verified Adverse Reaction, Severe, DELIRIUM, 12/23/16) WORSENING of agitation and delirium. Morphine (Verified Adverse Reaction, Mild, CONFUSION, EXTREME AGITATION, ) Haloperidol (Verified Adverse Reaction, Unknown, OVERSEDATION IN THE PAST , 12/23/16) Listed on [facility]. Uncoded Allergies: BENGAY (Adverse Reaction, Intermediate, RASH, 11/19/16) Physical Exam Vital Signs Date Time Temp Pulse Resp B/P Pulse Ox O2 Delivery O2 Flow Rate FiO2 12/23/16 07:03 90 12/23/16 06:03 92 20 128/56 97 Room Air 12/23/16 04:55 87 18 117/64 96 Room Air 12/23/16 03:38 90 12/23/16 03:32 37.0 91 12 134/76 95 Room Air Physical Exam HEENT: Head - normocephalic and atraumatic Pupils are equal, round, and reactive to light. Extraocular eye muscles are intact, and sclera are anicteric. Nose - moist nasal mucosa without discharge. Mouth - moist buccal mucosa. Oropharynx is nonerythematous and there is no tonsillar exudate or edema noted. Neck: Supple; no JVD, nuchal rigidity, cervical lymphadenopathy, or auscultated bruits. Heart: Regular rate and rhythm. There is a normal S1 and S2 with no murmurs, clicks, or gallops appreciated. Lungs: Clear to auscultation bilaterally with no wheezes, rales, or rhonchi. Abdomen: Soft, completely nontender, nondistended, with good bowel sounds. There are no palpable pulsatile masses or hepatosplenomegaly. There is no guarding, rigidity, or rebound noted. Extremities: No evidence of cyanosis, clubbing, or edema. There are easily palpable peripheral pulses. Skin: warm and dry with good turgor and no rashes. Medical Decision & Procedures ER Provider Diagnostic Interpretation: X-ray results as stated below per interpretation by me. Chest One View Portable: Cardiac pacemaker in place, slightly rotated, no other acute pulmonary findings. Laboratory Results 12/23/16 04:05 Red Blood Count 4.02, Mean Corpuscular Volume 96.3, Mean Corpuscular Hemoglobin 31.6, Mean Corpuscular Hemoglobin Concent 32.8, Mean Platelet Volume 9.2, Neutrophils (%) (Auto) 78.5, Lymphocytes (%) (Auto) 5.6, Monocytes (%) (Auto) 14.2, Eosinophils (%) (Auto) 1.3, Basophils (%) (Auto) 0.2, Neutrophils # (Auto ) 8.02, Lymphocytes # (Auto) 0.57, Monocytes # (Auto) 1.45, Eosinophils # (Auto ) 0.13, Basophils # (Auto) 0.02 12/23/16 04:05 12/23/16 05:03 Test 12/23/16 04:05 12/23/16 05:03 White Blood Count 10.21 K/uL (4.8-10.8) Red Blood Count 4.02 M/uL (4.2-5.4) Hemoglobin 12.7 g/dL (12.0-16.0) Hematocrit 38.7 % (37-47) Mean Corpuscular Volume 96.3 fL (80-100) Mean Corpuscular Hemoglobin 31.6 pg (25-34) Mean Corpuscular Hemoglobin Concent 32.8 g/dl (32-36) Platelet Count 269 K/uL (130-400) Mean Platelet Volume 9.2 fL (7.4-10.4) Neutrophils (%) (Auto) 78.5 % Lymphocytes (%) (Auto) 5.6 % Monocytes (%) (Auto) 14.2 % Eosinophils (%) (Auto) 1.3 % Basophils (%) (Auto) 0.2 % Neutrophils # (Auto) 8.02 K/uL (1.4-6.5) Lymphocytes # (Auto) 0.57 K/uL (1.2-3.4) Monocytes # (Auto) 1.45 K/uL (0.11-0.59) Eosinophils # (Auto) 0.13 K/uL (0-0.5) Basophils # (Auto) 0.02 K/uL (0-0.2) RDW Standard Deviation 47.9 fL (36.4-46.3) RDW Coefficient of Variation 13.6 % (11.5-14.5) Immature Granulocyte % (Auto) 0.2 % Immature Granulocyte # (Auto) 0.02 K/uL (0.00-0.02) Anion Gap 5.0 mmol/L (3-11) Est Creatinine Clear Calc Drug Dose 40.6 ml/min Estimated GFR () 81.0 Estimated GFR (Non- 69.9 BUN/Creatinine Ratio 22.6 (10-20) Calcium Level 9.0 mg/dl (8.5-10.1) Total Bilirubin 1.3 mg/dl (0.2-1) Alanine Aminotransferase (ALT/SGPT) 19 U/L (12-78) Alkaline Phosphatase 82 U/L (45-117) Creatine Kinase MB 1.2 ng/ml (0.5-3.6) Creatine Kinase MB Ratio (0-3.0) Pro-B-Type Natriuretic Peptide 2265 pg/ml (0-1800) Total Protein 6.9 gm/dl (6.4-8.2) Albumin 3.2 gm/dl (3.4-5.0) Globulin 3.7 gm/dl (2.5-4.0) Albumin/Globulin Ratio 0.9 (0.9-2) Aspartate Amino Transf (AST/SGOT) 12 U/L (15-37) Total Creatine Kinase 22 U/L (26-192) Troponin I < 0.015 ng/ml (0-0.045) Laboratory results per my review. ECG Indication: chest pain Rate (beats per minute): 91 Rhythm: normal sinus Findings: ST elevation (0.5 mm in leads I, AvL) Comparison ECG Date: 08 December 2016 Change: no significant change ED Course 0350: Past medical records reviewed. The patient was evaluated in room B2. A complete history and physical exam was performed. Records from [facility] were reviewed. A twelve-lead EKG was obtained as described above. The patient had chest x-ray as described above. 0555: Reassessed the patient. She is resting comfortably at this time. She has had no return of the discomfort in her neck or chest. A repeat troponin was performed. 0705: Updated the patient. Her repeat troponin was negative. She will be discharged back to [facility]. Medical Decision The patient is an 86 year old female who presents to the ED with chest pain. Differential diagnosis includes cardiac ischemia, STEMI, acute coronary syndrome , costochondritis, pleurisy. Laboratory interpretation: normal white count, stable H&H, normal renal function , glucose 82, negative cardiac enzymes, BNP 2265. Repeat troponin < 0.015. This is an 86-year-old female patient with dementia who presents to the emergency department after having an episode of anterior neck and Chest pain at [facility]. Upon arrival here in the emergency department, the patient has no complaints. 2 sets of cardiac enzymes were negative. The patient was encouraged to follow-up with if she had recurrent chest pain today Impression Primary Impression: Radiating chest pain Scribe Attestation The scribe's documentation has been prepared under my direction and personally reviewed by me in its entirety. I confirm that the note above accurately reflects all work, treatment, procedures, and medical decision making performed by me. Departure Information Dispostion Home / Self-Care Referrals Jere Neal M.D. (PCP) Forms HOME CARE DOCUMENTATION FORM, IMPORTANT VISIT INFORMATION, WORK / SCHOOL INSTRUCTIONS Patient Instructions Chest Pain - [facility], ED Chest Pain Atypical Unkn Cause, My [facility] Additional Instructions Please follow up with Dr. Neal today if you have any further chest pain or neck pain
[2016-12-23 04:16] LABS: BASO % 0.2 %; BASO ABS # 0.02 K/uL (0-0.2); COMPLETE YES; EOS % 1.3 %; HEMATOCRIT 38.7 % (37-47); IG% 0.2 %; LYMPH % 5.6 %; LYMPH ABS # 0.57 K/uL (1.2-3.4); MEAN CELL VOLUME 96.3 fL (80-100); MEAN CORPUSCULAR HEMOGLOBIN 31.6 pg (25-34); MEAN CORPUSCULAR HGB CONC 32.8 g/dl (32-36); MEAN PLATELET VOLUME 9.2 fL (7.4-10.4); MONO % 14.2 %; NEUT % 78.5 %; PLATELET COUNT 269 K/uL (130-400); RED BLOOD COUNT 4.02 M/uL (4.2-5.4); WHITE BLOOD COUNT 10.21 K/uL (4.8-10.8)
[2016-12-23 04:45] LABS: ALB/GLOB RATIO 0.9 (0.9-2); ALKALINE PHOSPHATASE 82 U/L (45-117); ALT/SGPT 19 U/L (12-78); BLOOD UREA NITROGEN 17 mg/dl (7-18); BUN/CREATININE RATIO 22.6 (10-20); CARBON DIOXIDE 28 mmol/L (21-32); CHLORIDE 106 mmol/L (98-107); CREATININE 0.77 mg/dl (0.60-1.20); GLUCOSE 82 mg/dl (70-99); SODIUM 139 mmol/L (136-145)
[2016-12-23] MEDS ORDERED: NUTR-1197 PO (05:20)
[2016-12-23] MEDS ORDERED: WOUN1PAD TD (05:27)
[2016-12-23 05:38] LABS: POTASSIUM 4.2 mmol/L (3.5-5.1)
[2016-12-23 05:46] LABS: AST/SGOT 12 U/L (15-37)
--- NOTE | 2016-12-23 07:45 | DIAGNOSTIC IMAGING REPORT ---
CHEST ONE VIEW PORTABLE CLINICAL HISTORY: Chest pain. COMPARISON STUDY: Chest radiograph December 08, 2016. FINDINGS: A right subclavian pacemaker is in place. There is no pneumothorax or pleural effusion. There is no evidence of pulmonary edema. No consolidation is identified. Cardiomediastinal silhouette is stable. IMPRESSION: No acute cardiopulmonary findings. Electronically signed by: Regis Welch M.D. 12/23/2016 7:44 AM Dictated Date/Time: 12/23/2016 7:43 AM
[2016-12-23 08:11] VITALS: BP 114/61; PULSE 92; O2SAT 97
== END 2016-12-23 08:12 | disposition home or self-care (01) ==
LOC: EDBD 03:30 → C.EDB 03:31
DX: R07.9 Chest pain, unspecified (principal); Z85.038 Personal history of other malignant neoplasm of large intestine; I10 Essential (primary) hypertension; K52.9 Noninfective gastroenteritis and colitis, unspecified; K21.9 Gastro-esophageal reflux disease without esophagitis; Z95.0 Presence of cardiac pacemaker; Z86.14 Personal history of Methicillin resistant Staphylococcus aureus infection; Z82.49 Family history of ischemic heart disease and other diseases of the circulatory system; Z79.899 Other long term (current) drug therapy

== ENCOUNTER → 2017-01-06 | Outpatient (CLI) | payer OTHER ==
[~2017-01-06] MED LIST changes: +LEVO1TAB34 PO; -NF656 TOP; +NUTR-1197 PO; +NYSCR15 TOP; -PRED10TA PO; +WOUN1PAD TD
[2017-01-06 11:19] LABS: CHOLESTEROL/HDL RATIO 2.8
== END ==
LOC: C.LABFOXAE 09:07
PROVIDERS: ATTEND Internal Medicine
DX: E87.6 Hypokalemia (principal); I82.449 Acute embolism and thrombosis of unspecified tibial vein

== ENCOUNTER 2017-03-04 21:50 | Emergency (ER) | payer OTHER ==
[~2017-03-04] VITALS: Ht 157.5 cm; Wt 48.0 kg
[~2017-03-04 21:50] MED LIST changes: -LEVO1TAB34 PO; -MOMLX PO; -NYSCR15 TOP
[2017-03-04 22:07] VITALS: TEMP 36.8
[2017-03-04] MEDS ORDERED: MOMLX PO (22:17)
[2017-03-04] MEDS ORDERED: NYSCR15 TOP (22:17)
[2017-03-04 22:56] VITALS: O2SAT 100
[2017-03-04] MEDS ORDERED: TRAMADOL HCL 50 MG TAB PO STA (23:14)
[2017-03-04 23:22] LABS: BASO % 0.4 %; BASO ABS # 0.07 K/uL (0-0.2); COMPLETE YES; EOS % 4.2 %; HEMATOCRIT 39.1 % (37-47); IG% 0.4 %; LYMPH % 2.6 %; LYMPH ABS # 0.41 K/uL (1.2-3.4); MEAN CELL VOLUME 90.9 fL (80-100); MEAN CORPUSCULAR HEMOGLOBIN 29.5 pg (25-34); MEAN CORPUSCULAR HGB CONC 32.5 g/dl (32-36); MEAN PLATELET VOLUME 8.9 fL (7.4-10.4); MONO % 9.3 %; NEUT % 83.1 %; PLATELET COUNT 406 K/uL (130-400); WHITE BLOOD COUNT 15.64 K/uL (4.8-10.8)
[2017-03-04 23:27] LABS: INR 1.1 (0.9-1.1); PARTIAL THROMBOPLASTIN RATIO 1.1
--- NOTE | 2017-03-04 23:27 | EMERGENCY ROOM VISIT NOTE ---
History Report prepared by Cristina: Humberto Sol Under the Supervision of: Dr. Ayse Bourne D.O. First contact with patient: 22:59 Chief Complaint: OTHER COMPLAINT Stated Complaint: HEAD & NECK PAIN (CHRONIC), AMS History of Present Illness The patient is a 87 year old female who presents to the Emergency Room with a change in her altered mental status that occurred this evening. This HPI is limited secondary to her different mental status and the story being passed through the phone by her daughter to her son. She has a past medical history of progressing dementia and memory loss. This evening, the patient's daughter and the nurses at [facility] noticed that she was different than her baseline altered mental status. According to the patient's children, her blood pressure was high and she was experiencing more pain than usual. Per the nursing staff at [facility] , she received her morning dose of Tramadol and then none after that. She is supposed to take it every 4 hours. She has a past medical history of severe cervical arthritis, and is currently in between medication, planning on receiving more treatment at a pain center. Per the patient, she is having no severe pain, and is generally comfortable. She had chills upon arrival. She is currently talking about the ceiling vent in the room, describing it to me. Source of History: family, custodial notes History Limited By: AMS Onset: This evening Position: other (global) Symptom Intensity: mild Quality: other (Change in altered mental status) Timing: constant Associated Symptoms: + chills, + neck pain, No chest pain, No abdominal pain Review of Systems See HPI for pertinent positives & negatives. A total of 10 systems reviewed and were otherwise negative. Past Medical & Surgical Medical Problems: (1) Carcinoma of colon (2) Closed fracture of sternum (3) Dehydration (4) Diarrhea (5) Essential hypertension (6) Gastroenteritis (7) Gastroesophageal reflux disease (8) History of Clostridium difficile (9) MRSA (methicillin resistant Staphylococcus aureus) (10) Pacemaker (11) Total colectomy Surgical Problems: (1) S/P colostomy (2) S/P ureterostomy Family History Heart disease Social History Smoking Status: Never Smoker Alcohol Use: none Drug Use: none Marital Status: Housing Status: assisted living Occupation Status: retired Current/Historical Medications Scheduled Acetaminophen (Tylenol), 650 MG PO TID Codmx-R-Zuniiiloibczl (Beano), 2 TABS PO QID Cholecalciferol (Vitamin D-3), 2,000 UNIT PO DAILY Cyanocobalamin (Vitamin B12), 1,000 MCG PO DAILY Fluticasone Propionate (Nasal) (Flonase Allergy Relief), 2 SPRAYS ARI QAM Hydroxychloroquine Sulfate (Plaquenil), 200 MG PO DAILY Ibandronate Sodium (Boniva), 150 MG PO MONTHLY Lactase (Lac-Dose), 3,000 UNIT PO TID Levofloxacin (Levaquin), 1 TAB PO DAILY Magnesium Oxide (Mag-Ox), 400 MG PO TID Metoprolol Tartrate (Lopressor), 50 MG PO Q12 Pancrelipase (Lipase-Protease- (Creon), 24,000 UNITS PO 5XD Polyethylene Glycol 3350 (Miralax), 8.5 GM PO DAILY Potassium Chloride (Potassium Chloride Er), 10 MEQ PO TID Ranitidine (Zantac), 150 MG PO BID Simethicone (Ra Gas Relief), 80 MG PO TID Venlafaxine Hcl (Venlafaxine Hcl Er), 75 MG PO DAILY Scheduled PRN Magnesium Hydroxide (Milk of Magnesia), 30 ML PO EVERY 24 HOURS PRN for Constipation Nystatin (Nystatin), 1 APPLN TOP BID PRN for RASH Ondansetron Hcl (Zofran), 4 MG PO Q4H PRN for Nausea or Vomiting Polyvinyl Alcohol (Artificial Tears), 1 DROP OPB QID PRN for PRN Tramadol (Ultram), 50 MG PO Q4H PRN for Pain Allergies Coded Allergies: Camphor (Unverified Allergy, Unknown, RASH FROM BENGAY, 03/04/17) Carboxymethylcellulose (Unverified Allergy, Unknown, RASH, 03/04/17) Menthol (Unverified Allergy, Unknown, RASH, 03/04/17) Methyl Salicylate (Unverified Allergy, Unknown, RASH, 03/04/17) Sulfamethoxazole w/Trimethoprim (Verified Allergy, Unknown, HIVES, 12/23/16) Lorazepam (Verified Adverse Reaction, Severe, DELIRIUM, 12/23/16) WORSENING of agitation and delirium. Morphine (Verified Adverse Reaction, Mild, CONFUSION, EXTREME AGITATION, ) Haloperidol (Verified Adverse Reaction, Unknown, OVERSEDATION IN THE PAST , 12/23/16) Listed on [facility]. Uncoded Allergies: BENGAY (Adverse Reaction, Intermediate, RASH, 11/19/16) Physical Exam Vital Signs Date Time Temp Pulse Resp B/P (MAP) Pulse Ox O2 Delivery O2 Flow Rate FiO2 03/05/17 03:53 110 16 120/68 98 03/05/17 02:57 114 03/05/17 02:17 118 18 144/95 98 Nasal Cannula 2.0 03/05/17 00:41 107 165/111 100 Nasal Cannula 3.0 03/04/17 23:00 100 18 149/96 03/04/17 22:56 100 Nasal Cannula 2.0 03/04/17 22:08 103 03/04/17 22:07 36.8 94 20 173/95 96 Nasal Cannula 2.0 Physical Exam HEENT: Head - normocephalic and atraumatic Pupils are equal, round, and reactive to light. Extraocular eye muscles are intact, and sclera are anicteric. Nose - moist nasal mucosa without discharge. Mouth - moist buccal mucosa. Oropharynx is nonerythematous and there is no tonsillar exudate or edema noted. Neck: Supple; no JVD, nuchal rigidity, cervical lymphadenopathy. Heart: Tachycardic rate with a regular rhythm. There is a normal S1 and S2 with no murmurs, clicks, or gallops appreciated. Lungs: Clear to auscultation bilaterally with no wheezes, rales, or rhonchi. Abdomen: Soft, completely nontender, nondistended, with good bowel sounds. There are no palpable pulsatile masses or hepatosplenomegaly. There is no guarding, rigidity, or rebound noted. There is a colostomy bag and a nephrostomy bag in place. Extremities: No evidence of cyanosis, clubbing, or edema. There are easily palpable peripheral pulses. Skin: hot and dry with good turgor and no rashes. Neuro: Pleasantly confused, but easily able to follow commands. Medical Decision & Procedures ER Provider Diagnostic Interpretation: Radiology results as stated below per my review and the radiologist's interpretation: 1 VIEW CHEST X-RAY: Moderately rotated, no pulmonary consolidation, cardiac pacemaker in place. Per me. CT HEAD: Comparison: 11/19/2016 No evidence of acute infarct, hemorrhage, mass, or edema. Chronic small vessel ischemic disease and senescent changes. Minimal mucosal thickening of the paranasal sinuses. No acute calvarial abnormality. Radiologist: Higinio Hilliard MD Laboratory Results 03/04/17 22:52 Red Blood Count 4.30, Mean Corpuscular Volume 90.9, Mean Corpuscular Hemoglobin 29.5, Mean Corpuscular Hemoglobin Concent 32.5, Mean Platelet Volume 8.9, Neutrophils (%) (Auto) 83.1, Lymphocytes (%) (Auto) 2.6, Monocytes (%) (Auto) 9.3, Eosinophils (%) (Auto) 4.2, Basophils (%) (Auto) 0.4, Neutrophils # (Auto) 12.97, Lymphocytes # (Auto) 0.41, Monocytes # (Auto) 1.46, Eosinophils # (Auto) 0.66, Basophils # (Auto) 0.07 03/04/17 22:52 Test 03/04/17 22:52 03/04/17 23:57 03/05/17 01:10 White Blood Count 15.64 K/uL (4.8-10.8) Red Blood Count 4.30 M/uL (4.2-5.4) Hemoglobin 12.7 g/dL (12.0-16.0) Hematocrit 39.1 % (37-47) Mean Corpuscular Volume 90.9 fL (80-100) Mean Corpuscular Hemoglobin 29.5 pg (25-34) Mean Corpuscular Hemoglobin Concent 32.5 g/dl (32-36) Platelet Count 406 K/uL (130-400) Mean Platelet Volume 8.9 fL (7.4-10.4) Neutrophils (%) (Auto) 83.1 % Lymphocytes (%) (Auto) 2.6 % Monocytes (%) (Auto) 9.3 % Eosinophils (%) (Auto) 4.2 % Basophils (%) (Auto) 0.4 % Neutrophils # (Auto) 12.97 K/uL (1.4-6.5) Lymphocytes # (Auto) 0.41 K/uL (1.2-3.4) Monocytes # (Auto) 1.46 K/uL (0.11-0.59) Eosinophils # (Auto) 0.66 K/uL (0-0.5) Basophils # (Auto) 0.07 K/uL (0-0.2) RDW Standard Deviation 43.8 fL (36.4-46.3) RDW Coefficient of Variation 13.2 % (11.5-14.5) Immature Granulocyte % (Auto) 0.4 % Immature Granulocyte # (Auto) 0.07 K/uL (0.00-0.02) Prothrombin Time 12.0 SECONDS (9.0-12.0) Prothromb Time International Ratio 1.1 (0.9-1.1) Activated Partial Thromboplast Time 29.5 SECONDS (21.0-31.0) Partial Thromboplastin Ratio 1.1 Anion Gap 8.0 mmol/L (3-11) Est Creatinine Clear Calc Drug Dose 27.3 ml/min Estimated GFR () 52.3 Estimated GFR (Non- 45.1 BUN/Creatinine Ratio 20.1 (10-20) Calcium Level 11.9 mg/dl (8.5-10.1) Total Bilirubin 0.5 mg/dl (0.2-1) Aspartate Amino Transf (AST/SGOT) 14 U/L (15-37) Alanine Aminotransferase (ALT/SGPT) 16 U/L (12-78) Alkaline Phosphatase 155 U/L (45-117) Total Protein 7.4 gm/dl (6.4-8.2) Albumin 3.2 gm/dl (3.4-5.0) Globulin 4.2 gm/dl (2.5-4.0) Albumin/Globulin Ratio 0.8 (0.9-2) Bedside Lactic Acid Venous 1.96 mmol/L (0.90-1.70) Urine Color YELLOW Urine Appearance TURBID (CLEAR) Urine pH 7.0 (4.5-7.5) Urine Specific [place] 1.020 (1.000-1.030) Urine Protein 1+ (NEG) Urine Glucose (UA) NEG (NEG) Urine Ketones NEG (NEG) Urine Occult Blood TRACE (NEG) Urine Nitrite NEG (NEG) Urine Bilirubin NEG (NEG) Urine Urobilinogen NEG (NEG) Urine Leukocyte Esterase LARGE (NEG) Urine WBC (Auto) >30 /hpf (0-5) Urine RBC (Auto) 0-4 /hpf (0-4) Urine Hyaline Casts (Auto) 1-5 /lpf (0-5) Urine Epithelial Cells (Auto) 10-20 /lpf (0-5) Urine Bacteria (Auto) 4+ (NEG) Urine Pathogenic Casts /lpf (0) Urine Yeast (Auto) (NONE PRSENT) Laboratory results per my review. Medications Administered Medications (Trade) Dose Ordered Sig/Gonzalo Route Start Time Stop Time Status Last Admin Dose Admin Tramadol HCl (Ultram Tab) 50 mg NOW STAT PO 03/04/17 23:14 03/04/17 23:16 DC 03/05/17 00:01 50 MG Sodium Chloride 1,000 ml @ 250 mls/hr Q4H STAT IV 03/05/17 01:45 03/05/17 04:14 DC 03/05/17 02:07 250 MLS/HR Levofloxacin (Levaquin / D5W) 500 mg NOW ONCE IV 03/05/17 02:00 03/05/17 02:01 DC 03/05/17 02:07 500 MG Procedure Tramadol HCl 50 mg PO Sodium Chloride 1000 ml @ 250 mls/hr IV Levofloxacin 500 mg IV ECG Indication: altered mental status Rate (beats per minute): 102 Rhythm: sinus tachycardia Findings: PAC, no acute ischemic change, no ectopy ED Course 2259: Past medical records reviewed. The patient was evaluated in room C4. A complete history and physical exam was performed. A septic protocol was performed. 2314: Ordered Tramadol HCl 50 mg PO. She went for CT scan of the brain. 0002: Her temperature was taken and is not elevated. 0145: Ordered Sodium Chloride 1000 ml @ 250 mls/hr IV 0200: Ordered Levofloxacin 500 mg IV 0303: I reassessed the patient at this time. Her Levaquin is finishing, and she is sound asleep. Her son will drive her home after she is discharged. 0330: Upon reevaluation, the patient is resting. I had a long conversation with the patient's son and daughter with regards to the possibility for sepsis. I also discussed the further investigation of the patient's hypercalcemia. They both agreed on discharging the patient and discussing the case further with Dr. Neal. The patient is ready for discharge. Medical Decision The patient is a 87 year old female who presents to the ED with a change in her altered mental status. Differential diagnosis includes sepsis, UTI, pneumonia, TIA, CVA, hypoglycemia, and hyperglycemia. I attest that I have personally reviewed the patient's current medication list. Patient was found to have an elevated blood pressure and was referred to their primary doctor for recheck and further treatment. Laboratory Results: Lactic acid 1.96, sodium 133, chloride 97, BUN 22, glucose 120, calcium 11.9, coagulation studies normal, urine appears to be infected with trace blood, large leukocyte esterase, greater than 30 white blood cells, and 4+ bacteria. White blood cell count 15.6, stable H&H. The staff at [facility] noticed the patient had an elevated blood pressure and seemed slightly more confused than usual. Upon arrival in the emergency room, the son felt that the patient's mental status was baseline but then soon realized she seemed more confused and seemed to be hallucinating. CT scan of the brain was unremarkable. The patient did have a urinary tract infection. She was also noted to be somewhat dehydrated. She received an IV normal saline bolus as well as IV Levaquin. I had reviewed previous urinary cultures for this patient and found the bacteria was susceptible to Levaquin. The patient was afebrile. However she had a moderate leukocytosis and mildly elevated lactic acid. The patient's daughter was anxious for her to go back to [facility]. I felt this would be safe as the patient could take an outpatient course of antibiotics. We did discuss the patient's elevated calcium level and the need for outpatient follow-up. The patient's children opted to wait to discuss the situation with Dr. Neal who is the patient's PCP. Impression Primary Impression: Altered mental status Additional Impression: Urinary tract infection associated with nephrostomy catheter Scribe Attestation The scribe's documentation has been prepared under my direction and personally reviewed by me in its entirety. I confirm that the note above accurately reflects all work, treatment, procedures, and medical decision making performed by me. Departure Information Dispostion Home / Self-Care Prescriptions Levofloxacin (LEVAQUIN) 500 Mg Tab 1 TAB PO DAILY for 10 Days, #10 TAB Prov: Ayse Bourne D.O. 03/05/17 Referrals Hugo Martinez (PCP) Forms HOME CARE DOCUMENTATION FORM, IMPORTANT VISIT INFORMATION, WORK / SCHOOL INSTRUCTIONS Patient Instructions My [facility], UTI Additional Instructions Please watch the patient closely because she has a bit of an altered mental status. Encourage rest and plenty of clear liquids Levaquin - daily for next 10 days follow up with Dr. Neal for a recheck and to discuss the hypercalcemia Return to the ER for worsening symptoms such as fever, increased pain, or increased confusion Problem Qualifiers Primary Impression: Altered mental status Altered mental status type: disorientation Qualified Codes: R41.0 - Disorientation, unspecified Additional Impression: Urinary tract infection associated with nephrostomy catheter Encounter type: initial encounter Qualified Codes: T83.512A - Infection and inflammatory reaction due to nephrostomy catheter, initial encounter; N39.0 - Urinary tract infection, site not specified
[2017-03-04 23:31] LABS: BUN/CREATININE RATIO 20.1 (10-20); CALCIUM 11.9 mg/dl (8.5-10.1); CREATININE 1.1 mg/dl (0.60-1.20); POTASSIUM 4.2 mmol/L (3.5-5.1)
[2017-03-04 23:33] LABS: ALB/GLOB RATIO 0.8 (0.9-2)
[2017-03-05 00:13] VITALS: Ht 157.5 cm; Wt 48.0 kg
[2017-03-05 01:21] LABS: URINE APPEARANCE TURBID (CLEAR); URINE BILIRUBIN NEG (NEG); URINE COLOR YELLOW; URINE NITRITE NEG (NEG); UROBILINOGEN NEG (NEG); ZZURINE CULT IF INDIC CATH YES
[2017-03-05 01:22] LABS: MANUAL MICROSCOPIC REQUIRED? NO; REVIEW REQ? YES
[2017-03-05] MEDS ORDERED: SODIUM CHLORIDE 0.9% 1000ML 1,000 ML IV STA (01:45)
[2017-03-05] MEDS ORDERED: LEVAQUIN 500MG / 100ML D5W IV ONE (02:00)
[2017-03-05] MEDS ORDERED: LEVO1TAB34 PO (03:19)
[2017-03-05 03:53] VITALS: BP 120/68; PULSE 110; O2SAT 98
--- NOTE | 2017-03-05 06:38 | DIAGNOSTIC IMAGING REPORT ---
CHEST ONE VIEW PORTABLE HISTORY: 87 years Female Sepsis COMPARISON: Chest radiograph 12/23/2016 TECHNIQUE: Portable upright AP view of the chest FINDINGS: Cardiac silhouette is upper limits of normal. There is dense atherosclerosis of the aorta. Mild prominence of the pulmonary vasculature appears unchanged. There is no pneumothorax, pleural effusion or focal airspace consolidation. There is no overt pulmonary edema. Lungs are mildly hyperinflated The bones are moderately demineralized and appear grossly intact. Sigmoidal scoliosis of the spine is redemonstrated. IMPRESSION: Mild pulmonary hyperinflation without acute cardiopulmonary process. The above report was generated using voice recognition software. It may contain grammatical, syntax or spelling errors. Electronically signed by: Desmond Toussaint M.D. 03/05/2017 6:37 AM Dictated Date/Time: 03/05/2017 6:34 AM
--- NOTE | 2017-03-05 07:12 | DIAGNOSTIC IMAGING REPORT ---
HEAD WITHOUT CONTRAST (CT) CLINICAL HISTORY: 87 years-old Female presenting with eval for altered ms. TECHNIQUE: Multidetector CT imaging of the head was performed without the use of intravenous contrast. COMPARISON: 11/19/2016. 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 Ventricles and sulci are enlarged secondary to ex vacuo dilatation with associated diffuse parenchymal volume loss, likely age-related. Extensive periventricular white matter hypoattenuation, nonspecific but likely chronic small vessel ischemic change. No evidence of major vascular territorial infarct. No midline shift or mass effect. No hemorrhage. No extra-axial fluid collection. Paranasal sinuses and mastoid air cells clear. Calvarium intact. IMPRESSION: No acute intracranial pathology. Electronically signed by: Yoni Boo M.D. 03/05/2017 7:11 AM Dictated Date/Time: 03/05/2017 7:08 AM
--- NOTE | 2017-03-07 12:50 | Pharmacy Progress Note ---
ED Pharmacist Culture FollowUp Date of Service: Mar 07, 2017. Patient was prescribed Levofloxacin 500mg PO daily x 10 days for complicated UTI. Urine Cx (cath specimen) from 03/05 is growing e coli sensitive to Levofloxacin. Patient's eCrCl in 20-30cc/min range. Discussed case w/ Dr Ojeda. Will reduce dose to 250mg PO daily to complete the 10 days course of therapy. Contacted Michelle and faxed new Rx to [phone] per their request. No further action required.
== END 2017-03-05 03:54 | disposition home or self-care (01) ==
LOC: EDBD 21:50 → C.EDC 21:51 → C.EDA 03-05 03:54
DX: R41.0 Disorientation, unspecified (principal); N39.0 Urinary tract infection, site not specified; T83.512A Infection and inflammatory reaction due to nephrostomy catheter, initial encounter; Y73.2 Prosthetic and other implants, materials and accessory gastroenterology and urology devices associated with adverse incidents; F03.90 Unspecified dementia, unspecified severity, without behavioral disturbance, psychotic disturbance, mood disturbance, and anxiety; M47.812 Spondylosis without myelopathy or radiculopathy, cervical region; Z85.038 Personal history of other malignant neoplasm of large intestine; I10 Essential (primary) hypertension; L21.9 Seborrheic dermatitis, unspecified; Z95.0 Presence of cardiac pacemaker; Z90.49 Acquired absence of other specified parts of digestive tract; Z93.3 Colostomy status; Z86.19 Personal history of other infectious and parasitic diseases; Z86.14 Personal history of Methicillin resistant Staphylococcus aureus infection; Z93.6 Other artificial openings of urinary tract status

== ENCOUNTER → 2017-03-06 | Outpatient (CLI) | payer OTHER ==
[~2017-03-06] MED LIST changes: +LEVO1TAB34 PO; +MOMLX PO; +NYSCR15 TOP
[2017-03-06 10:00] LABS: BASO % 0.7 %; BASO ABS # 0.07 K/uL (0-0.2); COMPLETE YES; EOS % 8.7 %; HEMATOCRIT 42.2 % (37-47); IG% 0.4 %; LYMPH % 5.5 %; LYMPH ABS # 0.58 K/uL (1.2-3.4); MEAN CELL VOLUME 92.3 fL (80-100); MEAN CORPUSCULAR HEMOGLOBIN 29.3 pg (25-34); MEAN CORPUSCULAR HGB CONC 31.8 g/dl (32-36); MEAN PLATELET VOLUME 9.2 fL (7.4-10.4); MONO % 15.1 %; NEUT % 69.6 %; PLATELET COUNT 517 K/uL (130-400); RED BLOOD COUNT 4.57 M/uL (4.2-5.4); WHITE BLOOD COUNT 10.56 K/uL (4.8-10.8)
[2017-03-06 10:25] LABS: ALT/SGPT 13 U/L (12-78); AST/SGOT 12 U/L (15-37); BLOOD UREA NITROGEN 18 mg/dl (7-18); BUN/CREATININE RATIO 19.1 (10-20); CALCIUM 11.7 mg/dl (8.5-10.1); CARBON DIOXIDE 24 mmol/L (21-32); CHLORIDE 102 mmol/L (98-107); CREATININE 0.95 mg/dl (0.60-1.20); GLUCOSE 79 mg/dl (70-99); SODIUM 136 mmol/L (136-145)
[2017-03-06 10:28] LABS: ALB/GLOB RATIO 0.8 (0.9-2); ALKALINE PHOSPHATASE 138 U/L (45-117)
== END | disposition home or self-care (01) ==
LOC: C.LABFOXAE 09:37
PROVIDERS: ATTEND Internal Medicine
DX: E83.52 Hypercalcemia (principal)

== ENCOUNTER → 2017-03-07 | Outpatient (CLI) | payer OTHER ==
[~2017-03-07] MED LIST changes: -NUTR-1197 PO; -WOUN1PAD TD
[2017-03-07 08:25] LABS: CALCIUM 11.9 mg/dl (8.5-10.1)
[2017-03-07 08:32] LABS: PHOSPHORUS 1.8 mg/dl (2.5-4.9)
== END | disposition home or self-care (01) ==
LOC: C.LABFOXAE 07:44
PROVIDERS: ATTEND Internal Medicine Hospice and Palliative Medicine
DX: E83.52 Hypercalcemia (principal)